=== PATIENT | male | born 1960 | race African-American/Black ===

== ENCOUNTER 2021-01-06 11:35 | Observation (INO) | payer OTHER ==
--- NOTE | 2021-01-06 12:44 | PCM.HP.2 ---
<Keyshawn Sen - Last Filed: 01/07/21 09:33> H&P History of Present Illness - General Date of Service: 01/06/21 Source of Information: Patient History Limitations: Reports: No Limitations - History of Present Illness Initial Comments - Free Text/Narative: Patient is a morbidly obese 60-year-old -[place] male with a significant past medical history of atrial fibrillation, CHF, possible asthma; presenting today as direct admission from [facility] for worsening shortness of breath and an episode of syncope 24 hours prior. Patient states increasing dyspnea with exertion and having to use 2 pillows at night as shortness of breath would worsen while in complete supine position. States that symptoms began towards the middle of October and had steadily worsened up until last week symptoms progressively worsened. Denies any fevers, chills, body aches. Endorses dyspnea with exertion and shortness of breath at rest especially in the supine position. [facility]: EKG: Atrial fibrillation with a ventricular rate of 99 Diltiazem 10 mg IV push once at 5 AM on 12/29/2020. Started on diltiazem oral 100 mg given at 8 AM this morning. Patient was also given 40 mg of furosemide IV push. Labs from outside facility: Sodium 140 Potassium 3.9. Glucose 106 creatinine 0.6 AST 60, ALT 86 alk phos 132 BNP 780 WBC: 12 Hemoglobin 14 Hematocrit 41 platelets 221 COVID negative Bedside: Patient endorses symptoms have improved since admission. Endorsed yesterday some significant symptoms but admitted he is feeling much better now. Denies any acute distress at this time including fever, chills, bodies, chest pain, shortness of breath. - Related Data Allergies/Adverse Reactions: Allergies Allergy/AdvReac Type Severity Reaction Status Date / Time No Known Allergies Allergy Verified 01/06/21 12:20 Home Medications: Home Meds Albuterol Sulfate [Proair Hfa] 1 puff INH Q4HR PRN 01/06/21 [History] Apixaban [Eliquis] 5 mg PO BID #60 tablet 01/10/21 [Rx] Diltiazem HCl [Diltiazem 24Hr Cd] 240 mg PO DAILY #30 cap.er.24h 01/10/21 [Rx] Furosemide [Lasix] 40 mg PO BID #60 tab 01/10/21 [Rx] Metoprolol Tartrate [Lopressor] 50 mg PO Q12H #60 tablet 01/10/21 [Rx] levoFLOXacin [Levaquin] 250 mg PO DAILY #9 tab 01/10/21 [Rx] H&P Review of Systems - Review of Systems: Review Of Systems: See Below General: Denies: Fever, Chills, Malaise, Weakness, Fatigue HEENT: Reports: No Symptoms Pulmonary: Reports: Cough. Denies: Shortness of Breath Cardiovascular: Reports: Dyspnea on Exertion, Edema. Denies: Chest Pain, Palpitations Gastrointestinal: Reports: No Symptoms Genitourinary: Reports: No Symptoms Musculoskeletal: Reports: No Symptoms Skin: Reports: No Symptoms Psychiatric: Reports: No Symptoms Neurological: Reports: No Symptoms Exam - Exam Exam: See Below - Exam Quality Assessment: No: Supplemental Oxygen General: Alert, Oriented, Cooperative HEENT: EOMI, Mucosa Moist & [place] Neck: Supple, Trachea Midline Lungs: Other (Moving air well faint crackles in bases ; coarse BS w. cough ) Cardiovascular: Regular Rate, Irregular Rhythm GI/Abdominal Exam: Soft, Non-Tender Back Exam: Normal Inspection Extremities: Other (+2/3 pitting edema noted to lower thigh bilaterally ) Neuro Extensive - Mental Status: Alert, Oriented x3 Psychiatric: Alert, Normal Mood - Patient Data Result Diagrams: 01/06/21 12:50 01/06/21 12:55 - Problem List (1) Afib SNOMED Code(s): 52771620 ICD Code: I48.91 - UNSPECIFIED ATRIAL FIBRILLATION Status: Acute (2) CHF (congestive heart failure) SNOMED Code(s): 23019955 ICD Code: I50.9 - HEART FAILURE, UNSPECIFIED Status: Acute (3) Obesity SNOMED Code(s): 393504710, 582114292 ICD Code: E66.9 - OBESITY, UNSPECIFIED Status: Acute Problem List Initiated/Reviewed/Updated: Yes Orders Last 24hrs: Active Orders 24 hr Category Date Time Status Antiembolic Devices [RC] PER UNIT ROUTINE Care 01/06/21 12:36 Active Daily Weight [Height and Weight] [RC] DAILY Care 01/06/21 12:38 Active Intake and Output Strict [RC] ASDIRECTED Care 01/06/21 12:38 Active Oxygen Therapy [RC] PRN Care 01/06/21 12:35 Active Pulse Oximetry [RC] PRN Care 01/06/21 12:35 Active RT BiPAP/CPAP [RC] ASDIRECTED Care 01/06/21 12:40 Ordered Telemetry Monitoring [Cardiac Monitoring] [RC] . Care 01/06/21 12:37 Active DIRECTED Up With Assistance [RC] ASDIRECTED Care 01/06/21 12:35 Active VTE/DVT Education [RC] PER UNIT ROUTINE Care 01/06/21 12:35 Active Vital Signs [RC] Q4H Care 01/06/21 12:35 Active 2 Gram Sodium Diet [DIET] Diet 01/06/21 Dinner Active Chest 2V [CR] Stat Exams 01/06/21 12:42 Ordered Echo 2D wo Cont [US] Urgent Exams 01/06/21 12:36 Ordered B-TYPE NATRIURETIC PEPTIDE,BNP [CHEM] Stat Lab 01/06/21 12:37 Ordered CBC WITH AUTO DIFF [HEME] AM Lab 01/07/21 05:11 Ordered CBC WITH AUTO DIFF [HEME] AM Lab 01/08/21 05:11 Ordered CBC WITH AUTO DIFF [HEME] AM Lab 01/09/21 05:11 Ordered CBC WITH AUTO DIFF [HEME] Stat Lab 01/06/21 12:36 Ordered COMPREHENSIVE METABOLIC PN,CMP [CHEM] AM Lab 01/07/21 05:11 Ordered COMPREHENSIVE METABOLIC PN,CMP [CHEM] AM Lab 01/08/21 05:11 Ordered COMPREHENSIVE METABOLIC PN,CMP [CHEM] AM Lab 01/09/21 05:11 Ordered COMPREHENSIVE METABOLIC PN,CMP [CHEM] Stat Lab 01/06/21 12:36 Ordered GLYCOSYLATED HEMOGLOBIN,HGBA1C [CHEM] Urgent Lab 01/06/21 12:42 Ordered UA RFX ED AND CULT IF INDIC [URIN] Stat Lab 01/06/21 12:39 Ordered Diltiazem [Cardizem CD] Med 01/07/21 09:00 Ordered 180 mg PO DAILY Sequential Compression Device [OM.PC] Per Unit Routine Oth 01/06/21 12:35 Ordered Medication Orders Diltiazem HCl (Diltiazem 180 Mg Cap.Cd) 180 mg PO DAILY ROC Assessment/Plan Comment:: Assessment: 1. CHF exacerbation with elevated BNP 2. A. fib with rate control 3. Leukocytosis 4. Transaminitis. 5. Past medical history: CRICKET on CPAP 6. COVID negative Plan Admit to observation. Full code. Strict I's and O's. Daily weights. DVT prophylaxis: History of A. fib: Start Eliquis GI prophylaxis pantoprazole 40 daily 1. CHF exacerbation with elevated BNP: Faint crackles on examination. Continue telemetry. Vital signs otherwise stable not requiring oxygen. Start Lasix 40 mg 3 times daily and dose adjust accordingly. Daily weights/strict I's and O's. Fluid and sodium restriction. Recheck CBC/CMP and urine electrolytes accordingly. Stat chest x-ray ordered. Urgent echocardiogram ordered to establish ejection fraction. 2. Atrial fibrillation rate controlled on current regimen: Started on 180 mg diltiazem CD at outside facility; we will continue this regimen daily and titrate accordingly. 20 mg IVPevery 3 hours as needed for heart rate 3-1 20 Systane ordered. Eliquis from my milligrams p.o. twice daily started as patient did not tolerate Coumadin in past per patient. Continue telemetry 3. Leukocytosis: Currently afebrile and no significant signs of overt bacteremia. We will order stat chest x-ray and treat accordingly. UA negative. 4. Transaminitis: Most likely secondary to hepatic steatosis in a morbidly obese man. Recheck in a.m. No abdominal tenderness noted. 5. Past medical history: Obstructive sleep apnea; continue CPAP at night. 6. COVID negative: reviewed report from [facility] facility; COVID negative <Shantell Castellanos - Last Filed: 01/10/21 17:15> H&P History of Present Illness - General Admit Problem/Dx: Admission Diagnosis/Problem Admission Diagnosis/Problem CHF, Congestive heart failure Exam - Vital Signs Vital Signs: Last Vital Signs Temp 35.6 C L 01/10/21 08:24 Pulse 106 H 01/10/21 09:15 Resp 20 01/10/21 08:24 BP 123/84 01/10/21 09:15 Pulse Ox 95 01/10/21 08:24 - Patient Data Lab Results Last 24 hrs: Laboratory Results - last 24 hr 01/10/21 01/10/21 Range/Units 05:05 05:05 WBC 12.88 H (4.0-11.0) K/uL RBC 4.87 (4.50-5.90) M/uL Hgb 15.0 (13.0-17.0) g/dL Hct 46.6 (38.0-50.0) % MCV 95.7 (80.0-98.0) fL MCH 30.8 (27.0-32.0) pg MCHC 32.2 (31.0-37.0) g/dL RDW Std Deviation 49.0 (28.0-62.0) fl RDW Coeff of Andrew 14 (11.0-15.0) % Plt Count 275 (150-400) K/uL MPV 11.30 (7.40-12.00) fL Neut % (Auto) 64.4 (48.0-80.0) % Lymph % (Auto) 24.0 (16.0-40.0) % [place] % (Auto) 9.8 (0.0-15.0) % Eos % (Auto) 1.5 (0.0-7.0) % Baso % (Auto) 0.3 (0.0-1.5) % Neut # (Auto) 8.3 H (1.4-5.7) K/uL Lymph # (Auto) 3.1 H (0.6-2.4) K/uL [place] # (Auto) 1.3 H (0.0-0.8) K/uL Eos # (Auto) 0.2 (0.0-0.7) K/uL Baso # (Auto) 0.0 (0.0-0.1) K/uL Nucleated RBC % 0.0 /100WBC Nucleated RBCs # 0 K/uL Sodium 141 (136-148) mmol/L Potassium 3.9 (3.5-5.1) mmol/L Chloride 103 (98-107) mmol/L Carbon Dioxide 30.8 (21.0-32.0) mmol/L BUN 19 H (7.0-18.0) mg/dL Creatinine 1.0 (0.8-1.3) mg/dL Est Cr Clr Drug Dosing 100.24 mL/min Estimated GFR (MDRD) > 60.0 ml/min Glucose 100 (74-106) mg/dL Calcium 9.0 (8.5-10.1) mg/dL Magnesium 2.2 (1.8-2.4) mg/dL Total Bilirubin 0.6 (0.2-1.0) mg/dL AST 23 (15-37) IU/L ALT 52 (14-63) IU/L Alkaline Phosphatase 132 H (46-116) U/L Total Protein 6.9 (6.4-8.2) g/dL Albumin 2.8 L (3.4-5.0) g/dL Globulin 4.1 H (2.6-4.0) g/dL Albumin/Globulin Ratio 0.7 L (0.9-1.6) Result Diagrams: 01/10/21 05:05 01/10/21 05:05 Sepsis Event Note - Focused Exam Vital Signs: Vital Signs Temp Pulse Pulse Resp BP BP Pulse Ox 01/10/21 09:15 106 H 123/84 01/10/21 09:14 106 H 123/84 01/10/21 08:24 35.6 C L 111 H 20 136/84 95 01/10/21 05:31 36.5 C 88 19 124/94 H 94 L Assessment/Plan Comment:: I performed a history and physical exam of the patient and discussed management with resident. I have reviewed the residents note and agree with documented findings and plan unless otherwise specified in my note.' .
[2021-01-06 13:14] LABS: HEMOGLOBIN A1C 5.8 %
[2021-01-06 13:26] LABS: BLOOD UREA NITROGEN,BUN 13 mg/dL (7.0-18.0); CARBON DIOXIDE,CO2 29.2 mmol/L (21.0-32.0); CHLORIDE,CL 104 mmol/L (98-107); GLUCOSE RANDOM 98 mg/dL (74-106); POTASSIUM,K 4.1 mmol/L (3.5-5.1); SODIUM,NA 140 mmol/L (136-148)
--- NOTE | 2021-01-06 15:19 | CR ---
INDICATION: Pain, shortness of breath. TECHNIQUE: Chest 2 views. COMPARISON: None. FINDINGS: There is a rounded consolidation in the left lung base which could represent an infiltrate or mass. No pleural effusion or pneumothorax. Normal heart size and pulmonary vascularity. Tortuous aorta. The bones are unremarkable. IMPRESSION: Rounded consolidation in the left lung base could represent infiltrate or mass. This could be further evaluated with CT of the chest. Dictated by Jennifer Barber MD @ 01/06/2021 3:17:[address] Jennifer Barber @ Jan 06 2021 3:17PM
[2021-01-06] MEDS: Furosemide 40 MG/4 ML VIAL IVPUSH SCH ×2 (16:00→21:34)
--- NOTE | 2021-01-06 18:20 | CT ---
INDICATION: Opacity on chest x-ray, assess for infiltrate versus mass. TECHNIQUE: Axial images were obtained from the thoracic inlet to the diaphragm. Reformats: Coronal and sagittal IV Contrast: None COMPARISON: Chest x-ray 01/06/2021 FINDINGS: Mediastinum: The thyroid gland is unremarkable. High right paratracheal lymph node measures up to 10 millimeters. Mild fusiform enlargement of the ascending thoracic aorta measuring up to 4.6 centimeters. Mild coronary atherosclerosis. No pericardial effusion. Lungs and Pleural Space: No pleural effusion or pneumothorax. Paraseptal bulla lung apices. Left lower lobe nodular opacities which appear more central to central lobular. Trace atelectasis adjacent to the spine in the right lower lobe. Chest wall: No masses. Upper abdomen: Minimal colonic diverticulosis. Bones: Degenerative disc disease thoracic spine. IMPRESSION: 1. Chest x-ray abnormality corresponds to multiple nodules within the left lower lobe. This is a bit nonspecific although the distribution is more centrilobular to peribronchovascular. Inflammatory or neoplastic etiologies not entirely excluded, however this appearance would favor infectious nodularity. As this is visible radiographically, follow-up x-ray recommended in 6-8 weeks to document resolution. If there is failure of this process to resolve that time, repeat CT chest and possible biopsy would be indicated. 2. Mild fusiform enlargement of the ascending thoracic aorta at 4.6 centimeters. Please note that all CT scans at this facility use dose modulation, iterative reconstruction, and/or weight-based dosing when appropriate to reduce radiation dose to as low as reasonably achievable. Dictated by Frankie Elder MD @ 01/06/2021 6:19:[address] Frankie Elder @ Jan 06 2021 6:19PM
[2021-01-06] MEDS: Apixaban 5 MG Tab PO SCH (21:33)
[2021-01-06] MEDS: Levofloxacin/Dextrose 5%-Water 750 MG in Premix Bag 1 BAG IV SCH (21:33)
[2021-01-06] MEDS ORDERED: Diltiazem IR 60 MG Tab PO ONE (22:44)
[2021-01-06] MEDS: Albuterol/Ipratropium 3.0-0.5 MG/3 ML Neb Soln NEB PRN (23:42)
[2021-01-07] MEDS: Furosemide 40 MG/4 ML VIAL IVPUSH SCH ×3 (06:52→21:23)
[2021-01-07] MEDS: Pantoprazole 40 MG Tab.CR PO SCH (06:52)
[2021-01-07 07:46] LABS: BLOOD UREA NITROGEN,BUN 13 mg/dL (7.0-18.0); CARBON DIOXIDE,CO2 31.5 mmol/L (21.0-32.0); CHLORIDE,CL 103 mmol/L (98-107); GLUCOSE RANDOM 108 mg/dL (74-106); POTASSIUM,K 3.6 mmol/L (3.5-5.1); SODIUM,NA 140 mmol/L (136-148)
[2021-01-07] MEDS: Aspirin 81 MG Tab.Chew PO SCH (08:24)
[2021-01-07] MEDS: Apixaban 5 MG Tab PO SCH ×2 (08:24→21:23)
[2021-01-07] MEDS: Albuterol/Ipratropium 3.0-0.5 MG/3 ML Neb Soln NEB PRN (08:39)
[2021-01-07] MEDS ORDERED: Diltiazem 180 MG Cap.CD PO SCH (09:00)
--- NOTE | 2021-01-07 09:38 | PCM.PN ---
<Keyshawn Sen - Last Filed: 01/07/21 13:21> - General Info Date of Service: 01/07/21 Subjective Update: Bedside: endorses feeling better. Mentiosn some coughing fits but otherwise denies any new alarming symptoms - Review of Systems General: Reports: No Symptoms HEENT: Reports: No Symptoms Pulmonary: Reports: Cough Cardiovascular: Reports: Dyspnea on Exertion, Edema Gastrointestinal: Reports: No Symptoms Genitourinary: Reports: No Symptoms Musculoskeletal: Reports: Foot Pain Neurological: Reports: No Symptoms - Patient Data Vitals - Most Recent: Last Vital Signs Temp 97.5 F 01/07/21 08:16 Pulse 90 01/07/21 08:16 Resp 20 01/07/21 08:16 BP 152/117 H 01/07/21 08:16 Pulse Ox 95 01/07/21 08:16 Weight - Most Recent: 175.631 kg I&O - Last 24 Hours: Intake & Output 01/06/21 01/07/21 01/07/21 22:59 06:59 14:59 Intake Total 1050 800 Output Total 1375 4345 Balance -325 -3545 Lab Results Last 24 Hours: Laboratory Results - last 24 hr 01/06/21 01/06/21 01/06/21 Range/Units 12:50 12:55 12:55 WBC 13.96 H (4.0-11.0) K/uL RBC 4.56 (4.50-5.90) M/uL Hgb 14.3 (13.0-17.0) g/dL Hct 43.8 (38.0-50.0) % MCV 96.1 (80.0-98.0) fL MCH 31.4 (27.0-32.0) pg MCHC 32.6 (31.0-37.0) g/dL RDW Std Deviation 51.0 (28.0-62.0) fl RDW Coeff of Andrew 15 (11.0-15.0) % Plt Count 274 (150-400) K/uL MPV 10.70 (7.40-12.00) fL Neut % (Auto) 62.4 (48.0-80.0) % Lymph % (Auto) 26.2 (16.0-40.0) % [place] % (Auto) 9.7 (0.0-15.0) % Eos % (Auto) 1.4 (0.0-7.0) % Baso % (Auto) 0.3 (0.0-1.5) % Neut # (Auto) 8.7 H (1.4-5.7) K/uL Lymph # (Auto) 3.7 H (0.6-2.4) K/uL [place] # (Auto) 1.4 H (0.0-0.8) K/uL Eos # (Auto) 0.2 (0.0-0.7) K/uL Baso # (Auto) 0.0 (0.0-0.1) K/uL Nucleated RBC % 0.0 /100WBC Nucleated RBCs # 0 K/uL Sodium 140 (136-148) mmol/L Potassium 4.1 (3.5-5.1) mmol/L Chloride 104 (98-107) mmol/L Carbon Dioxide 29.2 (21.0-32.0) mmol/L BUN 13 (7.0-18.0) mg/dL Creatinine 0.9 (0.8-1.3) mg/dL Est Cr Clr Drug Dosing TNP Estimated GFR (MDRD) > 60.0 ml/min Glucose 98 (74-106) mg/dL Hemoglobin A1c (4.5 - 6.2) % Calcium 8.8 (8.5-10.1) mg/dL Total Bilirubin 0.6 (0.2-1.0) mg/dL AST 60 H (15-37) IU/L ALT 100 H (14-63) IU/L Alkaline Phosphatase 147 H (46-116) U/L B-Natriuretic Peptide 652 H (<100) PG/ML Total Protein 7.0 (6.4-8.2) g/dL Albumin 3.0 L (3.4-5.0) g/dL Globulin 4.0 (2.6-4.0) g/dL Albumin/Globulin Ratio 0.8 L (0.9-1.6) Triglycerides (0-200) mg/dL Cholesterol (50-200) mg/dL LDL Cholesterol, Calc (60-180) mg/dL VLDL Cholesterol (5-55) mg/dL HDL Cholesterol (40-60) mg/dL Cholesterol/HDL Ratio (3.3-6.0) Free T4 (0.76-1.46) ng/dL Free T3 (2.18-3.98) pg/mL TSH 3rd Generation (0.36-3.74) uIU/mL Urine Color Urine Appearance Urine pH (5.0-8.0) Ur Specific [place] (1.001-1.035) Urine Protein (NEGATIVE) mg/dL Urine Glucose (UA) (NEGATIVE) mg/dL Urine Ketones (NEGATIVE) mg/dL Urine Occult Blood (NEGATIVE) Urine Nitrite (NEGATIVE) Urine Bilirubin (NEGATIVE) Urine Urobilinogen (<2.0) EU/dL Ur Leukocyte Esterase (NEGATIVE) 01/06/21 01/06/21 01/07/21 Range/Units 12:55 13:47 06:23 WBC 13.03 H (4.0-11.0) K/uL RBC 4.43 L (4.50-5.90) M/uL Hgb 14.1 (13.0-17.0) g/dL Hct 42.5 (38.0-50.0) % MCV 95.9 (80.0-98.0) fL MCH 31.8 (27.0-32.0) pg MCHC 33.2 (31.0-37.0) g/dL RDW Std Deviation 49.7 (28.0-62.0) fl RDW Coeff of Andrew 14 (11.0-15.0) % Plt Count 246 (150-400) K/uL MPV 11.00 (7.40-12.00) fL Neut % (Auto) 65.3 (48.0-80.0) % Lymph % (Auto) 23.7 (16.0-40.0) % [place] % (Auto) 9.6 (0.0-15.0) % Eos % (Auto) 1.1 (0.0-7.0) % Baso % (Auto) 0.3 (0.0-1.5) % Neut # (Auto) 8.5 H (1.4-5.7) K/uL Lymph # (Auto) 3.1 H (0.6-2.4) K/uL [place] # (Auto) 1.3 H (0.0-0.8) K/uL Eos # (Auto) 0.1 (0.0-0.7) K/uL Baso # (Auto) 0.0 (0.0-0.1) K/uL Nucleated RBC % 0.0 /100WBC Nucleated RBCs # 0 K/uL Sodium (136-148) mmol/L Potassium (3.5-5.1) mmol/L Chloride (98-107) mmol/L Carbon Dioxide (21.0-32.0) mmol/L BUN (7.0-18.0) mg/dL Creatinine (0.8-1.3) mg/dL Est Cr Clr Drug Dosing Estimated GFR (MDRD) ml/min Glucose (74-106) mg/dL Hemoglobin A1c 5.8 (4.5 - 6.2) % Calcium (8.5-10.1) mg/dL Total Bilirubin (0.2-1.0) mg/dL AST (15-37) IU/L ALT (14-63) IU/L Alkaline Phosphatase (46-116) U/L B-Natriuretic Peptide (<100) PG/ML Total Protein (6.4-8.2) g/dL Albumin (3.4-5.0) g/dL Globulin (2.6-4.0) g/dL Albumin/Globulin Ratio (0.9-1.6) Triglycerides (0-200) mg/dL Cholesterol (50-200) mg/dL LDL Cholesterol, Calc (60-180) mg/dL VLDL Cholesterol (5-55) mg/dL HDL Cholesterol (40-60) mg/dL Cholesterol/HDL Ratio (3.3-6.0) Free T4 (0.76-1.46) ng/dL Free T3 (2.18-3.98) pg/mL TSH 3rd Generation (0.36-3.74) uIU/mL Urine Color YELLOW Urine Appearance CLEAR Urine pH 6.5 (5.0-8.0) Ur Specific [place] 1.015 (1.001-1.035) Urine Protein NEGATIVE (NEGATIVE) mg/dL Urine Glucose (UA) NEGATIVE (NEGATIVE) mg/dL Urine Ketones NEGATIVE (NEGATIVE) mg/dL Urine Occult Blood NEGATIVE (NEGATIVE) Urine Nitrite NEGATIVE (NEGATIVE) Urine Bilirubin NEGATIVE (NEGATIVE) Urine Urobilinogen 0.2 (<2.0) EU/dL Ur Leukocyte Esterase NEGATIVE (NEGATIVE) 01/07/21 Range/Units 06:23 WBC (4.0-11.0) K/uL RBC (4.50-5.90) M/uL Hgb (13.0-17.0) g/dL Hct (38.0-50.0) % MCV (80.0-98.0) fL MCH (27.0-32.0) pg MCHC (31.0-37.0) g/dL RDW Std Deviation (28.0-62.0) fl RDW Coeff of Andrew (11.0-15.0) % Plt Count (150-400) K/uL MPV (7.40-12.00) fL Neut % (Auto) (48.0-80.0) % Lymph % (Auto) (16.0-40.0) % [place] % (Auto) (0.0-15.0) % Eos % (Auto) (0.0-7.0) % Baso % (Auto) (0.0-1.5) % Neut # (Auto) (1.4-5.7) K/uL Lymph # (Auto) (0.6-2.4) K/uL [place] # (Auto) (0.0-0.8) K/uL Eos # (Auto) (0.0-0.7) K/uL Baso # (Auto) (0.0-0.1) K/uL Nucleated RBC % /100WBC Nucleated RBCs # K/uL Sodium 140 (136-148) mmol/L Potassium 3.6 (3.5-5.1) mmol/L Chloride 103 (98-107) mmol/L Carbon Dioxide 31.5 (21.0-32.0) mmol/L BUN 13 (7.0-18.0) mg/dL Creatinine 0.9 (0.8-1.3) mg/dL Est Cr Clr Drug Dosing 111.38 Estimated GFR (MDRD) > 60.0 ml/min Glucose 108 H (74-106) mg/dL Hemoglobin A1c (4.5 - 6.2) % Calcium 8.7 (8.5-10.1) mg/dL Total Bilirubin 0.8 (0.2-1.0) mg/dL AST 39 H (15-37) IU/L ALT 87 H (14-63) IU/L Alkaline Phosphatase 137 H (46-116) U/L B-Natriuretic Peptide (<100) PG/ML Total Protein 6.3 L (6.4-8.2) g/dL Albumin 2.9 L (3.4-5.0) g/dL Globulin 3.4 (2.6-4.0) g/dL Albumin/Globulin Ratio 0.9 (0.9-1.6) Triglycerides 69 (0-200) mg/dL Cholesterol 118 (50-200) mg/dL LDL Cholesterol, Calc 65 (60-180) mg/dL VLDL Cholesterol 13 (5-55) mg/dL HDL Cholesterol 39 L (40-60) mg/dL Cholesterol/HDL Ratio 3.0 L (3.3-6.0) Free T4 1.28 (0.76-1.46) ng/dL Free T3 3.04 (2.18-3.98) pg/mL TSH 3rd Generation 0.47 (0.36-3.74) uIU/mL Urine Color Urine Appearance Urine pH (5.0-8.0) Ur Specific [place] (1.001-1.035) Urine Protein (NEGATIVE) mg/dL Urine Glucose (UA) (NEGATIVE) mg/dL Urine Ketones (NEGATIVE) mg/dL Urine Occult Blood (NEGATIVE) Urine Nitrite (NEGATIVE) Urine Bilirubin (NEGATIVE) Urine Urobilinogen (<2.0) EU/dL Ur Leukocyte Esterase (NEGATIVE) Med Orders - Current: Current Medications Albuterol/Ipratropium (Albuterol/Ipratropium 3.0-0.5 Mg/3 Ml Neb Soln) 3 ml NEB Q4HRRT PRN PRN Reason: Dyspnea Last Admin: 01/07/21 08:39 Dose: 3 ml Documented by: Apixaban (Apixaban 5 Mg Tab) 5 mg PO BID [facility] Last Admin: 01/07/21 08:24 Dose: 5 mg Documented by: Aspirin (Aspirin 81 Mg Tab.Chew) 81 mg PO DAILY [facility] Last Admin: 01/07/21 08:24 Dose: 81 mg Documented by: Atorvastatin Calcium (Atorvastatin 20 Mg Tab) 20 mg PO BEDTIME [facility] Diltiazem HCl (Diltiazem 180 Mg Cap.Cd) 180 mg PO DAILY [facility] Last Admin: 01/07/21 08:24 Dose: 180 mg Documented by: Diltiazem HCl (Diltiazem 25 Mg/5 Ml Sdv) 20 mg IVPUSH Q3H PRN PRN Reason: heart rate > 120 sustained Furosemide (Furosemide 40 Mg/4 Ml Vial) 40 mg IVPUSH TID [facility] Last Admin: 01/07/21 06:52 Dose: 40 mg Documented by: Levofloxacin/Dextrose 750 mg/ (Premix) 150 mls @ 100 mls/hr IV Q24H [facility] Last Admin: 01/06/21 21:33 Dose: 100 mls/hr Documented by: Pantoprazole Sodium (Pantoprazole 40 Mg Tab.Cr) 40 mg PO ACBREAKFAST [facility] Last Admin: 01/07/21 06:52 Dose: 40 mg Documented by: Discontinued Medications Diltiazem HCl (Diltiazem Ir 60 Mg Tab) 60 mg PO ONETIME ONE Stop: 01/06/21 22:45 Last Admin: 01/06/21 23:18 Dose: 60 mg Documented by: - Exam General: Alert, Oriented HEENT: EOMI, Mucous Membr. Moist/[place] Neck: Supple Lungs: Normal Respiratory Effort Cardiovascular: Regular Rate, Irregular Rhythm GI/Abdominal Exam: Soft, Non-Tender Extremities: Other (Pedal edema: improved from yesterday ) Skin: Warm, Intact - Patient Data Lab Results Last 24 hrs: Laboratory Results - last 24 hr 01/06/21 01/06/21 01/06/21 Range/Units 12:50 12:55 12:55 WBC 13.96 H (4.0-11.0) K/uL RBC 4.56 (4.50-5.90) M/uL Hgb 14.3 (13.0-17.0) g/dL Hct 43.8 (38.0-50.0) % MCV 96.1 (80.0-98.0) fL MCH 31.4 (27.0-32.0) pg MCHC 32.6 (31.0-37.0) g/dL RDW Std Deviation 51.0 (28.0-62.0) fl RDW Coeff of [place] 15 (11.0-15.0) % Plt Count 274 (150-400) K/uL MPV 10.70 (7.40-12.00) fL Neut % (Auto) 62.4 (48.0-80.0) % Lymph % (Auto) 26.2 (16.0-40.0) % [place] % (Auto) 9.7 (0.0-15.0) % Eos % (Auto) 1.4 (0.0-7.0) % Baso % (Auto) 0.3 (0.0-1.5) % Neut # (Auto) 8.7 H (1.4-5.7) K/uL Lymph # (Auto) 3.7 H (0.6-2.4) K/uL [place] # (Auto) 1.4 H (0.0-0.8) K/uL Eos # (Auto) 0.2 (0.0-0.7) K/uL Baso # (Auto) 0.0 (0.0-0.1) K/uL Nucleated RBC % 0.0 /100WBC Nucleated RBCs # 0 K/uL Sodium 140 (136-148) mmol/L Potassium 4.1 (3.5-5.1) mmol/L Chloride 104 (98-107) mmol/L Carbon Dioxide 29.2 (21.0-32.0) mmol/L BUN 13 (7.0-18.0) mg/dL Creatinine 0.9 (0.8-1.3) mg/dL Est Cr Clr Drug Dosing TNP Estimated GFR (MDRD) > 60.0 ml/min Glucose 98 (74-106) mg/dL Hemoglobin A1c (4.5 - 6.2) % Calcium 8.8 (8.5-10.1) mg/dL Total Bilirubin 0.6 (0.2-1.0) mg/dL AST 60 H (15-37) IU/L ALT 100 H (14-63) IU/L Alkaline Phosphatase 147 H (46-116) U/L B-Natriuretic Peptide 652 H (<100) PG/ML Total Protein 7.0 (6.4-8.2) g/dL Albumin 3.0 L (3.4-5.0) g/dL Globulin 4.0 (2.6-4.0) g/dL Albumin/Globulin Ratio 0.8 L (0.9-1.6) Triglycerides (0-200) mg/dL Cholesterol (50-200) mg/dL LDL Cholesterol, Calc (60-180) mg/dL VLDL Cholesterol (5-55) mg/dL HDL Cholesterol (40-60) mg/dL Cholesterol/HDL Ratio (3.3-6.0) Free T4 (0.76-1.46) ng/dL Free T3 (2.18-3.98) pg/mL TSH 3rd Generation (0.36-3.74) uIU/mL Urine Color Urine Appearance Urine pH (5.0-8.0) Ur Specific [place] (1.001-1.035) Urine Protein (NEGATIVE) mg/dL Urine Glucose (UA) (NEGATIVE) mg/dL Urine Ketones (NEGATIVE) mg/dL Urine Occult Blood (NEGATIVE) Urine Nitrite (NEGATIVE) Urine Bilirubin (NEGATIVE) Urine Urobilinogen (<2.0) EU/dL Ur Leukocyte Esterase (NEGATIVE) 01/06/21 01/06/21 01/07/21 Range/Units 12:55 13:47 06:23 WBC 13.03 H (4.0-11.0) K/uL RBC 4.43 L (4.50-5.90) M/uL Hgb 14.1 (13.0-17.0) g/dL Hct 42.5 (38.0-50.0) % MCV 95.9 (80.0-98.0) fL MCH 31.8 (27.0-32.0) pg MCHC 33.2 (31.0-37.0) g/dL RDW Std Deviation 49.7 (28.0-62.0) fl RDW Coeff of [place] 14 (11.0-15.0) % Plt Count 246 (150-400) K/uL MPV 11.00 (7.40-12.00) fL Neut % (Auto) 65.3 (48.0-80.0) % Lymph % (Auto) 23.7 (16.0-40.0) % [place] % (Auto) 9.6 (0.0-15.0) % Eos % (Auto) 1.1 (0.0-7.0) % Baso % (Auto) 0.3 (0.0-1.5) % Neut # (Auto) 8.5 H (1.4-5.7) K/uL Lymph # (Auto) 3.1 H (0.6-2.4) K/uL [place] # (Auto) 1.3 H (0.0-0.8) K/uL Eos # (Auto) 0.1 (0.0-0.7) K/uL Baso # (Auto) 0.0 (0.0-0.1) K/uL Nucleated RBC % 0.0 /100WBC Nucleated RBCs # 0 K/uL Sodium (136-148) mmol/L Potassium (3.5-5.1) mmol/L Chloride (98-107) mmol/L Carbon Dioxide (21.0-32.0) mmol/L BUN (7.0-18.0) mg/dL Creatinine (0.8-1.3) mg/dL Est Cr Clr Drug Dosing Estimated GFR (MDRD) ml/min Glucose (74-106) mg/dL Hemoglobin A1c 5.8 (4.5 - 6.2) % Calcium (8.5-10.1) mg/dL Total Bilirubin (0.2-1.0) mg/dL AST (15-37) IU/L ALT (14-63) IU/L Alkaline Phosphatase (46-116) U/L B-Natriuretic Peptide (<100) PG/ML Total Protein (6.4-8.2) g/dL Albumin (3.4-5.0) g/dL Globulin (2.6-4.0) g/dL Albumin/Globulin Ratio (0.9-1.6) Triglycerides (0-200) mg/dL Cholesterol (50-200) mg/dL LDL Cholesterol, Calc (60-180) mg/dL VLDL Cholesterol (5-55) mg/dL HDL Cholesterol (40-60) mg/dL Cholesterol/HDL Ratio (3.3-6.0) Free T4 (0.76-1.46) ng/dL Free T3 (2.18-3.98) pg/mL TSH 3rd Generation (0.36-3.74) uIU/mL Urine Color YELLOW Urine Appearance CLEAR Urine pH 6.5 (5.0-8.0) Ur Specific [place] 1.015 (1.001-1.035) Urine Protein NEGATIVE (NEGATIVE) mg/dL Urine Glucose (UA) NEGATIVE (NEGATIVE) mg/dL Urine Ketones NEGATIVE (NEGATIVE) mg/dL Urine Occult Blood NEGATIVE (NEGATIVE) Urine Nitrite NEGATIVE (NEGATIVE) Urine Bilirubin NEGATIVE (NEGATIVE) Urine Urobilinogen 0.2 (<2.0) EU/dL Ur Leukocyte Esterase NEGATIVE (NEGATIVE) 01/07/21 Range/Units 06:23 WBC (4.0-11.0) K/uL RBC (4.50-5.90) M/uL Hgb (13.0-17.0) g/dL Hct (38.0-50.0) % MCV (80.0-98.0) fL MCH (27.0-32.0) pg MCHC (31.0-37.0) g/dL RDW Std Deviation (28.0-62.0) fl RDW Coeff of [place] (11.0-15.0) % Plt Count (150-400) K/uL MPV (7.40-12.00) fL Neut % (Auto) (48.0-80.0) % Lymph % (Auto) (16.0-40.0) % [place] % (Auto) (0.0-15.0) % Eos % (Auto) (0.0-7.0) % Baso % (Auto) (0.0-1.5) % Neut # (Auto) (1.4-5.7) K/uL Lymph # (Auto) (0.6-2.4) K/uL [place] # (Auto) (0.0-0.8) K/uL Eos # (Auto) (0.0-0.7) K/uL Baso # (Auto) (0.0-0.1) K/uL Nucleated RBC % /100WBC Nucleated RBCs # K/uL Sodium 140 (136-148) mmol/L Potassium 3.6 (3.5-5.1) mmol/L Chloride 103 (98-107) mmol/L Carbon Dioxide 31.5 (21.0-32.0) mmol/L BUN 13 (7.0-18.0) mg/dL Creatinine 0.9 (0.8-1.3) mg/dL Est Cr Clr Drug Dosing 111.38 Estimated GFR (MDRD) > 60.0 ml/min Glucose 108 H (74-106) mg/dL Hemoglobin A1c (4.5 - 6.2) % Calcium 8.7 (8.5-10.1) mg/dL Total Bilirubin 0.8 (0.2-1.0) mg/dL AST 39 H (15-37) IU/L ALT 87 H (14-63) IU/L Alkaline Phosphatase 137 H (46-116) U/L B-Natriuretic Peptide (<100) PG/ML Total Protein 6.3 L (6.4-8.2) g/dL Albumin 2.9 L (3.4-5.0) g/dL Globulin 3.4 (2.6-4.0) g/dL Albumin/Globulin Ratio 0.9 (0.9-1.6) Triglycerides 69 (0-200) mg/dL Cholesterol 118 (50-200) mg/dL LDL Cholesterol, Calc 65 (60-180) mg/dL VLDL Cholesterol 13 (5-55) mg/dL HDL Cholesterol 39 L (40-60) mg/dL Cholesterol/HDL Ratio 3.0 L (3.3-6.0) Free T4 1.28 (0.76-1.46) ng/dL Free T3 3.04 (2.18-3.98) pg/mL TSH 3rd Generation 0.47 (0.36-3.74) uIU/mL Urine Color Urine Appearance Urine pH (5.0-8.0) Ur Specific [place] (1.001-1.035) Urine Protein (NEGATIVE) mg/dL Urine Glucose (UA) (NEGATIVE) mg/dL Urine Ketones (NEGATIVE) mg/dL Urine Occult Blood (NEGATIVE) Urine Nitrite (NEGATIVE) Urine Bilirubin (NEGATIVE) Urine Urobilinogen (<2.0) EU/dL Ur Leukocyte Esterase (NEGATIVE) Result Diagrams: 01/07/21 06:23 01/07/21 06:23 Sepsis Event Note - Evaluation Sepsis Screening Result: No Definite Risk - Focused Exam Vital Signs: Vital Signs Temp Pulse Resp BP BP Pulse Ox 01/07/21 08:16 97.5 F 90 20 147/117 H 152/117 H 95 01/07/21 05:23 97.8 F 20 137/101 H 96 01/07/21 00:02 95 01/07/21 00:00 93 L 01/06/21 23:11 97 F 99 20 143/94 H 97 - Problem List & Annotations (1) Afib SNOMED Code(s): 56117156 Code(s): I48.91 - UNSPECIFIED ATRIAL FIBRILLATION Status: Acute (2) CHF (congestive heart failure) SNOMED Code(s): 50404614 Code(s): I50.9 - HEART FAILURE, UNSPECIFIED Status: Acute (3) Obesity SNOMED Code(s): 735949414, 943893651 Code(s): E66.9 - OBESITY, UNSPECIFIED Status: Acute - Problem List Review Problem List Initiated/Reviewed/Updated: Yes - My Orders Last 24 Hours: My Active Orders 01/06/21 12:35 Oxygen Therapy [RC] PRN Pulse Oximetry [RC] PRN Up With Assistance [RC] ASDIRECTED VTE/DVT Education [RC] PER UNIT ROUTINE Vital Signs [RC] Q4H Sequential Compression Device [OM.PC] Per Unit Routine 01/06/21 12:36 Antiembolic Devices [RC] PER UNIT ROUTINE Echo Comp wo Cont [US] Urgent 01/06/21 12:37 Telemetry Monitoring [Cardiac Monitoring] [RC] Q8H 01/06/21 12:38 Daily Weight [Height and Weight] [RC] Q24H Intake and Output Strict [RC] Q4H 01/06/21 12:40 RT BiPAP/CPAP [RC] ASDIRECTED 01/06/21 13:49 Admission Status [Patient Status] [ADT] Routine 01/06/21 14:00 Furosemide [Lasix] 40 mg IVPUSH TID 01/06/21 14:10 Code Status [Resuscitation Status] Routine 01/06/21 14:14 Diltiazem 20 mg IVPUSH Q3H PRN 01/06/21 Dinner 2 Gram Sodium Diet [DIET] 01/06/21 19:03 Communication Order [RC] ROUTINE 01/06/21 20:00 Levofloxacin/Dextrose 5%-Water [Levaquin in D5W 750 MG/150 ML] 750 mg Premix Bag 1 bag IV Q24H 01/06/21 21:00 Apixaban [Eliquis] 5 mg PO BID 01/07/21 07:30 Pantoprazole [ProTONIX] 40 mg PO ACBREAKFAST 01/07/21 09:00 Diltiazem [Cardizem CD] 180 mg PO DAILY 01/08/21 05:11 CBC WITH AUTO DIFF [HEME] AM COMPREHENSIVE METABOLIC PN,CMP [CHEM] AM 01/09/21 05:11 CBC WITH AUTO DIFF [HEME] AM COMPREHENSIVE METABOLIC PN,CMP [CHEM] AM - Plan Plan:: Assessment: 1. CHF exacerbation with elevated BNP 2. A. fib 3. Leukocytosis 4. Transaminitis. 5. Past medical history: CRICKET on CPAP 6. COVID negative Plan 1. CHF exacerbation with elevated BNP: improving, weight down/ dyspnea improving Continue Lasix 40 mg 3 times daily and dose adjust accordingly. Daily weights/strict I's and O's. Fluid and sodium restriction. Recheck CBC/CMP and urine electrolytes accordingly. Lung nodule : neoplastic vs inflammatory noted on LLL; discussed results with patient; will continue Levofloxacin sine WBC still elvated (marginally); advised to follow up in 6-8 weeks for repeat CXR/CT-scan 2. Atrial fibrillation: 180 mg CD in AM ; 30 mg IR q 6hrs today till midnight; start 240 CD in AM and adjust accordingly 20 mg IV every 3 hours as needed for heart rate >120 sustained Eliquis :continue Continue telemetry 3. Leukocytosis: Currently afebrile. Cont Levofloxacin. Discussed CT findings w. patient; pt understood and agreed to follow up outpatie nt for repeat imaging 4. Transaminitis: improving 5. Past medical history: Obstructive sleep apnea; continue CPAP at night. 6. COVID negative: reviewed report from [facility]; COVID negative <Shantell Castellanos - Last Filed: 01/10/21 17:12> - Patient Data Vitals - Most Recent: Last Vital Signs Temp 35.6 C L 01/10/21 08:24 Pulse 106 H 01/10/21 09:15 Resp 20 01/10/21 08:24 BP 123/84 01/10/21 09:15 Pulse Ox 95 01/10/21 08:24 I&O - Last 24 Hours: Intake & Output 01/10/21 01/10/21 01/10/21 06:59 14:59 22:59 Intake Total 700 500 Output Total 2800 650 Balance -2100 -150 Lab Results Last 24 Hours: Laboratory Results - last 24 hr 01/10/21 01/10/21 Range/Units 05:05 05:05 WBC 12.88 H (4.0-11.0) K/uL RBC 4.87 (4.50-5.90) M/uL Hgb 15.0 (13.0-17.0) g/dL Hct 46.6 (38.0-50.0) % MCV 95.7 (80.0-98.0) fL MCH 30.8 (27.0-32.0) pg MCHC 32.2 (31.0-37.0) g/dL RDW Std Deviation 49.0 (28.0-62.0) fl RDW Coeff of Andrew 14 (11.0-15.0) % Plt Count 275 (150-400) K/uL MPV 11.30 (7.40-12.00) fL Neut % (Auto) 64.4 (48.0-80.0) % Lymph % (Auto) 24.0 (16.0-40.0) % [place] % (Auto) 9.8 (0.0-15.0) % Eos % (Auto) 1.5 (0.0-7.0) % Baso % (Auto) 0.3 (0.0-1.5) % Neut # (Auto) 8.3 H (1.4-5.7) K/uL Lymph # (Auto) 3.1 H (0.6-2.4) K/uL [place] # (Auto) 1.3 H (0.0-0.8) K/uL Eos # (Auto) 0.2 (0.0-0.7) K/uL Baso # (Auto) 0.0 (0.0-0.1) K/uL Nucleated RBC % 0.0 /100WBC Nucleated RBCs # 0 K/uL Sodium 141 (136-148) mmol/L Potassium 3.9 (3.5-5.1) mmol/L Chloride 103 (98-107) mmol/L Carbon Dioxide 30.8 (21.0-32.0) mmol/L BUN 19 H (7.0-18.0) mg/dL Creatinine 1.0 (0.8-1.3) mg/dL Est Cr Clr Drug Dosing 100.24 mL/min Estimated GFR (MDRD) > 60.0 ml/min Glucose 100 (74-106) mg/dL Calcium 9.0 (8.5-10.1) mg/dL Magnesium 2.2 (1.8-2.4) mg/dL Total Bilirubin 0.6 (0.2-1.0) mg/dL AST 23 (15-37) IU/L ALT 52 (14-63) IU/L Alkaline Phosphatase 132 H (46-116) U/L Total Protein 6.9 (6.4-8.2) g/dL Albumin 2.8 L (3.4-5.0) g/dL Globulin 4.1 H (2.6-4.0) g/dL Albumin/Globulin Ratio 0.7 L (0.9-1.6) Med Orders - Current: Current Medications Discontinued Medications Albuterol/Ipratropium (Albuterol/Ipratropium 3.0-0.5 Mg/3 Ml Neb Soln) 3 ml NEB Q4HRRT PRN PRN Reason: Dyspnea Last Admin: 01/07/21 08:39 Dose: 3 ml Documented by: Apixaban (Apixaban 5 Mg Tab) 5 mg PO BID [facility] Last Admin: 01/10/21 09:15 Dose: 5 mg Documented by: Aspirin (Aspirin 81 Mg Tab.Chew) 81 mg PO DAILY [facility] Last Admin: 01/10/21 09:15 Dose: 81 mg Documented by: Atorvastatin Calcium (Atorvastatin 20 Mg Tab) 20 mg PO BEDTIME [facility] Last Admin: 01/09/21 20:24 Dose: 20 mg Documented by: Diltiazem HCl (Diltiazem 180 Mg Cap.Cd) 180 mg PO DAILY [facility] Last Admin: 01/07/21 08:24 Dose: 180 mg Documented by: Diltiazem HCl (Diltiazem 25 Mg/5 Ml Sdv) 20 mg IVPUSH Q3H PRN PRN Reason: heart rate > 120 sustained Last Admin: 01/08/21 07:59 Dose: 20 mg Documented by: Diltiazem HCl (Diltiazem Ir 60 Mg Tab) 60 mg PO ONETIME ONE Stop: 01/06/21 22:45 Last Admin: 01/06/21 23:18 Dose: 60 mg Documented by: Diltiazem HCl (Diltiazem Ir 60 Mg Tab) 60 mg PO ONETIME ONE Stop: 01/07/21 20:01 Diltiazem HCl (Diltiazem 120 Mg Cap.Cd) 240 mg PO DAILY [facility] Last Admin: 01/10/21 09:14 Dose: 240 mg Documented by: Diltiazem HCl (Diltiazem Ir 30 Mg Tab) 30 mg PO Q6HR [facility] Stop: 01/08/21 00:00 Last Admin: 01/07/21 23:30 Dose: 30 mg Documented by: Furosemide (Furosemide 40 Mg/4 Ml Vial) 40 mg IVPUSH TID [facility] Last Admin: 01/10/21 05:45 Dose: 40 mg Documented by: Levofloxacin/Dextrose 750 mg/ (Premix) 150 mls @ 100 mls/hr IV Q24H [facility] Last Admin: 01/09/21 20:25 Dose: 100 mls/hr Documented by: Metoprolol Tartrate (Metoprolol Tartrate 50 Mg Tab) 50 mg PO Q12H [facility] Last Admin: 01/10/21 09:15 Dose: 50 mg Documented by: Pantoprazole Sodium (Pantoprazole 40 Mg Tab.Cr) 40 mg PO ACBREAKFAST [facility] Last Admin: 01/10/21 06:47 Dose: 40 mg Documented by: Potassium Chloride (Potassium Chloride 20 Meq Tab.Er) 40 meq PO ONETIME ONE Stop: 01/08/21 09:31 Last Admin: 01/08/21 10:01 Dose: 40 meq Documented by: Tetanus/Diphtheria Toxoids (Diphtheria/Tetanus Toxoids,Adult (Td) 0.5 Ml Syringe) 0.5 ml IM .ONCE ONE Stop: 01/07/21 13:16 Last Admin: 01/07/21 13:53 Dose: 0.5 ml Documented by: - Patient Data Lab Results Last 24 hrs: Laboratory Results - last 24 hr 01/10/21 01/10/21 Range/Units 05:05 05:05 WBC 12.88 H (4.0-11.0) K/uL RBC 4.87 (4.50-5.90) M/uL Hgb 15.0 (13.0-17.0) g/dL Hct 46.6 (38.0-50.0) % MCV 95.7 (80.0-98.0) fL MCH 30.8 (27.0-32.0) pg MCHC 32.2 (31.0-37.0) g/dL RDW Std Deviation 49.0 (28.0-62.0) fl RDW Coeff of Andrew 14 (11.0-15.0) % Plt Count 275 (150-400) K/uL MPV 11.30 (7.40-12.00) fL Neut % (Auto) 64.4 (48.0-80.0) % Lymph % (Auto) 24.0 (16.0-40.0) % [place] % (Auto) 9.8 (0.0-15.0) % Eos % (Auto) 1.5 (0.0-7.0) % Baso % (Auto) 0.3 (0.0-1.5) % Neut # (Auto) 8.3 H (1.4-5.7) K/uL Lymph # (Auto) 3.1 H (0.6-2.4) K/uL [place] # (Auto) 1.3 H (0.0-0.8) K/uL Eos # (Auto) 0.2 (0.0-0.7) K/uL Baso # (Auto) 0.0 (0.0-0.1) K/uL Nucleated RBC % 0.0 /100WBC Nucleated RBCs # 0 K/uL Sodium 141 (136-148) mmol/L Potassium 3.9 (3.5-5.1) mmol/L Chloride 103 (98-107) mmol/L Carbon Dioxide 30.8 (21.0-32.0) mmol/L BUN 19 H (7.0-18.0) mg/dL Creatinine 1.0 (0.8-1.3) mg/dL Est Cr Clr Drug Dosing 100.24 mL/min Estimated GFR (MDRD) > 60.0 ml/min Glucose 100 (74-106) mg/dL Calcium 9.0 (8.5-10.1) mg/dL Magnesium 2.2 (1.8-2.4) mg/dL Total Bilirubin 0.6 (0.2-1.0) mg/dL AST 23 (15-37) IU/L ALT 52 (14-63) IU/L Alkaline Phosphatase 132 H (46-116) U/L Total Protein 6.9 (6.4-8.2) g/dL Albumin 2.8 L (3.4-5.0) g/dL Globulin 4.1 H (2.6-4.0) g/dL Albumin/Globulin Ratio 0.7 L (0.9-1.6) Result Diagrams: 01/10/21 05:05 01/10/21 05:05 Sepsis Event Note - Focused Exam Vital Signs: Vital Signs Temp Pulse Pulse Resp BP BP Pulse Ox 01/10/21 09:15 106 H 123/84 01/10/21 09:14 106 H 123/84 01/10/21 08:24 35.6 C L 111 H 20 136/84 95 01/10/21 05:31 36.5 C 88 19 124/94 H 94 L - Plan Plan:: I have seen and evaluated the patient. I have discussed findings and treatment plan with resident. I agree with the assessment and plan in the following note.
[2021-01-07] MEDS ORDERED: Diphtheria/Tetanus Toxoids,Adult (Td) 0.5 ML Syringe IM ONE (13:15)
[2021-01-07] MEDS: Diltiazem IR 30 MG Tab PO SCH ×3 (13:51→23:30)
[2021-01-07] MEDS ORDERED: Diltiazem IR 60 MG Tab PO ONE (20:00)
[2021-01-07] MEDS: atorvaSTATin 20 MG Tab PO SCH (21:22)
[2021-01-07] MEDS: Levofloxacin/Dextrose 5%-Water 750 MG in Premix Bag 1 BAG IV SCH (21:22)
[2021-01-08] MEDS: Diltiazem 25 MG/5 ML SDV IVPUSH PRN ×2 (04:37→07:59)
[2021-01-08 05:47] LABS: BLOOD UREA NITROGEN,BUN 14 mg/dL (7.0-18.0); CARBON DIOXIDE,CO2 29.7 mmol/L (21.0-32.0); CHLORIDE,CL 102 mmol/L (98-107); GLUCOSE RANDOM 111 mg/dL (74-106); POTASSIUM,K 3.6 mmol/L (3.5-5.1); SODIUM,NA 138 mmol/L (136-148)
[2021-01-08] MEDS: Furosemide 40 MG/4 ML VIAL IVPUSH SCH ×3 (06:15→21:42)
[2021-01-08] MEDS: Pantoprazole 40 MG Tab.CR PO SCH (06:30)
[2021-01-08] MEDS ORDERED: Potassium Chloride 20 MEQ Tab.ER PO ONE (09:30)
[2021-01-08] MEDS: Aspirin 81 MG Tab.Chew PO SCH (09:57)
[2021-01-08] MEDS: Diltiazem 120 MG Cap.CD PO SCH (09:58)
[2021-01-08] MEDS: Apixaban 5 MG Tab PO SCH ×2 (09:59→21:49)
[2021-01-08] MEDS: Metoprolol Tartrate 50 MG Tab PO SCH ×2 (10:00→21:49)
--- NOTE | 2021-01-08 12:24 | PCM.PN ---
- General Info Date of Service: 01/08/21 Subjective Update: Patient seen at bedside, resting in bed comfortably states that he has been feeling pretty well, states when he tries to get out of bed walk to the bathroom or when he tries to cough his heart rate jumps up and he can feel it in his chest. Otherwise states that he feels that he is improving every day. Patient is not using his CPAP states that he feels that the filter is not clean and the mask is not working well. I recommended patient to try it again and if it doesn't work then try to use the hospital CPAP machine patient is in agreement Functional Status: Reports: Tolerating Diet, Ambulating, Urinating - Review of Systems General: Denies: Fever, Weakness, Fatigue Pulmonary: Reports: Shortness of Breath, Cough. Denies: Pleuritic Chest Pain Cardiovascular: Denies: Chest Pain, Palpitations Gastrointestinal: Denies: Abdominal Pain, Constipation, Decreased Appetite Genitourinary: Denies: Dysuria, Frequency, Burning Musculoskeletal: Denies: Neck Pain, Shoulder Pain, Arm Pain Skin: Denies: Cyanosis, Jaundice - Patient Data Vitals - Most Recent: Last Vital Signs Temp 36.6 C 01/08/21 11:32 Pulse 106 H 01/08/21 11:32 Resp 16 01/08/21 11:32 BP 128/96 H 01/08/21 11:32 Pulse Ox 94 L 01/08/21 11:32 Weight - Most Recent: 173.318 kg I&O - Last 24 Hours: Intake & Output 01/07/21 01/08/21 01/08/21 22:59 06:59 14:59 Intake Total 1050 700 Output Total 2070 3220 Balance -1020 -2520 Lab Results Last 24 Hours: Laboratory Results - last 24 hr 01/08/21 01/08/21 Range/Units 05:00 05:00 WBC 12.70 H (4.0-11.0) K/uL RBC 4.79 (4.50-5.90) M/uL Hgb 14.9 (13.0-17.0) g/dL Hct 45.7 (38.0-50.0) % MCV 95.4 (80.0-98.0) fL MCH 31.1 (27.0-32.0) pg MCHC 32.6 (31.0-37.0) g/dL RDW Std Deviation 49.1 (28.0-62.0) fl RDW Coeff of Andrew 14 (11.0-15.0) % Plt Count 273 (150-400) K/uL MPV 10.90 (7.40-12.00) fL Neut % (Auto) 63.4 (48.0-80.0) % Lymph % (Auto) 25.1 (16.0-40.0) % [place] % (Auto) 9.4 (0.0-15.0) % Eos % (Auto) 1.9 (0.0-7.0) % Baso % (Auto) 0.2 (0.0-1.5) % Neut # (Auto) 8.0 H (1.4-5.7) K/uL Lymph # (Auto) 3.2 H (0.6-2.4) K/uL [place] # (Auto) 1.2 H (0.0-0.8) K/uL Eos # (Auto) 0.2 (0.0-0.7) K/uL Baso # (Auto) 0.0 (0.0-0.1) K/uL Nucleated RBC % 0.0 /100WBC Nucleated RBCs # 0 K/uL Sodium 138 (136-148) mmol/L Potassium 3.6 (3.5-5.1) mmol/L Chloride 102 (98-107) mmol/L Carbon Dioxide 29.7 (21.0-32.0) mmol/L BUN 14 (7.0-18.0) mg/dL Creatinine 1.0 (0.8-1.3) mg/dL Est Cr Clr Drug Dosing 100.24 mL/min Estimated GFR (MDRD) > 60.0 ml/min Glucose 111 H (74-106) mg/dL Calcium 9.1 (8.5-10.1) mg/dL Phosphorus 4.8 H (2.6-4.7) mg/dL Magnesium 2.0 (1.8-2.4) mg/dL Total Bilirubin 0.8 (0.2-1.0) mg/dL AST 33 (15-37) IU/L ALT 76 H (14-63) IU/L Alkaline Phosphatase 142 H (46-116) U/L Total Protein 6.9 (6.4-8.2) g/dL Albumin 2.9 L (3.4-5.0) g/dL Globulin 4.0 (2.6-4.0) g/dL Albumin/Globulin Ratio 0.7 L (0.9-1.6) Med Orders - Current: Current Medications Albuterol/Ipratropium (Albuterol/Ipratropium 3.0-0.5 Mg/3 Ml Neb Soln) 3 ml NEB Q4HRRT PRN PRN Reason: Dyspnea Last Admin: 01/07/21 08:39 Dose: 3 ml Documented by: Apixaban (Apixaban 5 Mg Tab) 5 mg PO BID [facility] Last Admin: 01/08/21 09:59 Dose: 5 mg Documented by: Aspirin (Aspirin 81 Mg Tab.Chew) 81 mg PO DAILY [facility] Last Admin: 01/08/21 09:57 Dose: 81 mg Documented by: Atorvastatin Calcium (Atorvastatin 20 Mg Tab) 20 mg PO BEDTIME [facility] Last Admin: 01/07/21 21:22 Dose: 20 mg Documented by: Diltiazem HCl (Diltiazem 25 Mg/5 Ml Sdv) 20 mg IVPUSH Q3H PRN PRN Reason: heart rate > 120 sustained Last Admin: 01/08/21 07:59 Dose: 20 mg Documented by: Diltiazem HCl (Diltiazem 120 Mg Cap.Cd) 240 mg PO DAILY [facility] Last Admin: 01/08/21 09:58 Dose: 240 mg Documented by: Furosemide (Furosemide 40 Mg/4 Ml Vial) 40 mg IVPUSH TID [facility] Last Admin: 01/08/21 06:15 Dose: 40 mg Documented by: Levofloxacin/Dextrose 750 mg/ (Premix) 150 mls @ 100 mls/hr IV Q24H [facility] Last Admin: 01/07/21 21:22 Dose: 100 mls/hr Documented by: Metoprolol Tartrate (Metoprolol Tartrate 50 Mg Tab) 50 mg PO Q12H [facility] Last Admin: 01/08/21 10:00 Dose: 50 mg Documented by: Pantoprazole Sodium (Pantoprazole 40 Mg Tab.Cr) 40 mg PO ACBREAKFAST [facility] Last Admin: 01/08/21 06:30 Dose: 40 mg Documented by: Discontinued Medications Diltiazem HCl (Diltiazem 180 Mg Cap.Cd) 180 mg PO DAILY [facility] Last Admin: 01/07/21 08:24 Dose: 180 mg Documented by: Diltiazem HCl (Diltiazem Ir 60 Mg Tab) 60 mg PO ONETIME ONE Stop: 01/06/21 22:45 Last Admin: 01/06/21 23:18 Dose: 60 mg Documented by: Diltiazem HCl (Diltiazem Ir 60 Mg Tab) 60 mg PO ONETIME ONE Stop: 01/07/21 20:01 Diltiazem HCl (Diltiazem Ir 30 Mg Tab) 30 mg PO Q6HR [facility] Stop: 01/08/21 00:00 Last Admin: 01/07/21 23:30 Dose: 30 mg Documented by: Potassium Chloride (Potassium Chloride 20 Meq Tab.Er) 40 meq PO ONETIME ONE Stop: 01/08/21 09:31 Last Admin: 01/08/21 10:01 Dose: 40 meq Documented by: Tetanus/Diphtheria Toxoids (Diphtheria/Tetanus Toxoids,Adult (Td) 0.5 Ml Syringe) 0.5 ml IM .ONCE ONE Stop: 01/07/21 13:16 Last Admin: 01/07/21 13:53 Dose: 0.5 ml Documented by: - Exam Quality Assessment: Supplemental Oxygen General: Alert, Oriented Neck: Supple Lungs: Clear to Auscultation, Normal Respiratory Effort Cardiovascular: Regular Rate, Regular Rhythm GI/Abdominal Exam: Normal Bowel Sounds, Soft, Non-Tender Extremities: Normal Inspection, Normal Range of Motion, Pedal Edema (Improving). No: No Pedal Edema - Patient Data Lab Results Last 24 hrs: Laboratory Results - last 24 hr 01/08/21 01/08/21 Range/Units 05:00 05:00 WBC 12.70 H (4.0-11.0) K/uL RBC 4.79 (4.50-5.90) M/uL Hgb 14.9 (13.0-17.0) g/dL Hct 45.7 (38.0-50.0) % MCV 95.4 (80.0-98.0) fL MCH 31.1 (27.0-32.0) pg MCHC 32.6 (31.0-37.0) g/dL RDW Std Deviation 49.1 (28.0-62.0) fl RDW Coeff of Andrew 14 (11.0-15.0) % Plt Count 273 (150-400) K/uL MPV 10.90 (7.40-12.00) fL Neut % (Auto) 63.4 (48.0-80.0) % Lymph % (Auto) 25.1 (16.0-40.0) % [place] % (Auto) 9.4 (0.0-15.0) % Eos % (Auto) 1.9 (0.0-7.0) % Baso % (Auto) 0.2 (0.0-1.5) % Neut # (Auto) 8.0 H (1.4-5.7) K/uL Lymph # (Auto) 3.2 H (0.6-2.4) K/uL [place] # (Auto) 1.2 H (0.0-0.8) K/uL Eos # (Auto) 0.2 (0.0-0.7) K/uL Baso # (Auto) 0.0 (0.0-0.1) K/uL Nucleated RBC % 0.0 /100WBC Nucleated RBCs # 0 K/uL Sodium 138 (136-148) mmol/L Potassium 3.6 (3.5-5.1) mmol/L Chloride 102 (98-107) mmol/L Carbon Dioxide 29.7 (21.0-32.0) mmol/L BUN 14 (7.0-18.0) mg/dL Creatinine 1.0 (0.8-1.3) mg/dL Est Cr Clr Drug Dosing 100.24 mL/min Estimated GFR (MDRD) > 60.0 ml/min Glucose 111 H (74-106) mg/dL Calcium 9.1 (8.5-10.1) mg/dL Phosphorus 4.8 H (2.6-4.7) mg/dL Magnesium 2.0 (1.8-2.4) mg/dL Total Bilirubin 0.8 (0.2-1.0) mg/dL AST 33 (15-37) IU/L ALT 76 H (14-63) IU/L Alkaline Phosphatase 142 H (46-116) U/L Total Protein 6.9 (6.4-8.2) g/dL Albumin 2.9 L (3.4-5.0) g/dL Globulin 4.0 (2.6-4.0) g/dL Albumin/Globulin Ratio 0.7 L (0.9-1.6) Result Diagrams: 01/08/21 05:00 01/08/21 05:00 Sepsis Event Note - Evaluation Sepsis Screening Result: No Definite Risk - Focused Exam Vital Signs: Vital Signs Temp Pulse Pulse Resp BP BP BP 01/08/21 11:32 36.6 C 106 H 16 128/96 H 01/08/21 10:05 102 H 130/93 H 01/08/21 10:00 124 H 148/89 H 01/08/21 09:58 124 H 148/89 H 01/08/21 08:00 36.2 C 147 H 18 148/89 H 01/08/21 04:27 36.1 C 18 139/71 Pulse Ox 01/08/21 11:32 94 L 01/08/21 10:05 01/08/21 10:00 01/08/21 09:58 01/08/21 08:00 92 L 01/08/21 04:27 94 L - Problem List Review Problem List Initiated/Reviewed/Updated: Yes - My Orders Last 24 Hours: My Active Orders 01/07/21 21:00 atorvaSTATin [Lipitor] 20 mg PO BEDTIME 01/08/21 09:45 Metoprolol Tartrate [Lopressor] 50 mg PO Q12H - Plan Plan:: Assessment: 1. CHF exacerbation 2. A. fib 3. Leukocytosis 4. Transaminitis. 5. Past medical history: CRICKET on CPAP 6. COVID negative Plan 1. CHF exacerbation with elevated BNP: improving, weight down/ dyspnea improving Continue Lasix 40 mg 3 times daily and dose adjust accordingly. Daily weights/strict I's and O's. Fluid and sodium restriction. Recheck CBC/CMP and urine electrolytes accordingly. Lung nodule : neoplastic vs inflammatory noted on LLL; discussed results with patient; will continue Levofloxacin since WBC still elevated (marginally); advised to follow up in 6-8 weeks for repeat CXR/CT-scan, patient aware 2. Atrial fibrillation: Increase the dose of Cardizem to 240 daily, resume patient's home dose metoprolol 20 mg IV every 3 hours as needed for heart rate >120 sustained Eliquis :continue Continue telemetry 3. Leukocytosis: Currently afebrile. Cont Levofloxacin. Discussed CT findings w. patient; pt understood and agreed to follow up outpatient for repeat imaging 4. Transaminitis: improving 5. Past medical history: Obstructive sleep apnea; continue CPAP at night. 6. COVID negative: reviewed report from [facility]; COVID negative
[2021-01-08] MEDS: Levofloxacin/Dextrose 5%-Water 750 MG in Premix Bag 1 BAG IV SCH (21:41)
[2021-01-08] MEDS: atorvaSTATin 20 MG Tab PO SCH (21:49)
[2021-01-09] MEDS: Pantoprazole 40 MG Tab.CR PO SCH ×2 (06:13→07:38)
[2021-01-09] MEDS: Furosemide 40 MG/4 ML VIAL IVPUSH SCH ×3 (06:13→22:09)
[2021-01-09 06:19] LABS: BLOOD UREA NITROGEN,BUN 18 mg/dL (7.0-18.0); CARBON DIOXIDE,CO2 33.9 mmol/L (21.0-32.0); CHLORIDE,CL 102 mmol/L (98-107); GLUCOSE RANDOM 100 mg/dL (74-106); POTASSIUM,K 3.7 mmol/L (3.5-5.1); SODIUM,NA 141 mmol/L (136-148)
[2021-01-09] MEDS: Metoprolol Tartrate 50 MG Tab PO SCH ×2 (09:21→22:09)
[2021-01-09] MEDS: Diltiazem 120 MG Cap.CD PO SCH (09:22)
[2021-01-09] MEDS: Aspirin 81 MG Tab.Chew PO SCH (09:22)
[2021-01-09] MEDS: Apixaban 5 MG Tab PO SCH ×2 (09:22→20:24)
--- NOTE | 2021-01-09 11:28 | PCM.PN ---
- General Info Date of Service: 01/09/21 Admission Dx/Problem (Free Text): Congestive heart failure, atrial fibrillation Subjective Update: Reports he is feeling significantly improved from his initial admission. Reports less of breath is a lot better. Denies any chest pain reports continued cough with slight amount of phlegm. Denies any nominal pain no trouble urinating and no black or bloody bowel movements. Functional Status: Reports: Pain Controlled, Tolerating Diet, Ambulating, Urinating - Review of Systems General: Reports: Fatigue (Reports he has not slept well). Denies: Weakness HEENT: Reports: No Symptoms. Denies: Headaches, Sore Throat, Visual Changes Pulmonary: Reports: Shortness of Breath (Mild but has improved significantly), Cough, Sputum (Scant) Cardiovascular: Reports: Edema (+1 pitting to his feet only has improved to his lower extremities otherwise). Denies: Chest Pain Gastrointestinal: Reports: No Symptoms. Denies: Abdominal Pain, Nausea, Vomiting Genitourinary: Reports: No Symptoms. Denies: Dysuria, Frequency, Burning Musculoskeletal: Reports: No Symptoms Skin: Reports: No Symptoms Neurological: Reports: No Symptoms Psychiatric: Reports: No Symptoms - Patient Data Vitals - Most Recent: Last Vital Signs Temp 96.0 F L 01/09/21 08:00 Pulse 63 01/09/21 09:22 Resp 22 H 01/09/21 08:00 BP 153/94 H 01/09/21 09:22 Pulse Ox 95 01/09/21 08:00 Weight - Most Recent: 172.456 kg I&O - Last 24 Hours: Intake & Output 01/08/21 01/09/21 01/09/21 22:59 06:59 14:59 Intake Total 750 850 Output Total 2100 2070 Balance -1350 -1220 Lab Results Last 24 Hours: Laboratory Results - last 24 hr 01/09/21 01/09/21 Range/Units 05:40 05:40 WBC 12.64 H (4.0-11.0) K/uL RBC 4.72 (4.50-5.90) M/uL Hgb 14.8 (13.0-17.0) g/dL Hct 45.5 (38.0-50.0) % MCV 96.4 (80.0-98.0) fL MCH 31.4 (27.0-32.0) pg MCHC 32.5 (31.0-37.0) g/dL RDW Std Deviation 49.6 (28.0-62.0) fl RDW Coeff of Andrew 14 (11.0-15.0) % Plt Count 280 (150-400) K/uL MPV 11.10 (7.40-12.00) fL Neut % (Auto) 60.3 (48.0-80.0) % Lymph % (Auto) 25.1 (16.0-40.0) % [place] % (Auto) 12.3 (0.0-15.0) % Eos % (Auto) 1.8 (0.0-7.0) % Baso % (Auto) 0.5 (0.0-1.5) % Neut # (Auto) 7.6 H (1.4-5.7) K/uL Lymph # (Auto) 3.2 H (0.6-2.4) K/uL [place] # (Auto) 1.6 H (0.0-0.8) K/uL Eos # (Auto) 0.2 (0.0-0.7) K/uL Baso # (Auto) 0.1 (0.0-0.1) K/uL Nucleated RBC % 0.0 /100WBC Nucleated RBCs # 0 K/uL Sodium 141 (136-148) mmol/L Potassium 3.7 (3.5-5.1) mmol/L Chloride 102 (98-107) mmol/L Carbon Dioxide 33.9 H (21.0-32.0) mmol/L BUN 18 (7.0-18.0) mg/dL Creatinine 1.1 (0.8-1.3) mg/dL Est Cr Clr Drug Dosing 91.13 mL/min Estimated GFR (MDRD) > 60.0 ml/min Glucose 100 (74-106) mg/dL Calcium 9.2 (8.5-10.1) mg/dL Phosphorus 4.5 (2.6-4.7) mg/dL Magnesium 2.2 (1.8-2.4) mg/dL Med Orders - Current: Current Medications Albuterol/Ipratropium (Albuterol/Ipratropium 3.0-0.5 Mg/3 Ml Neb Soln) 3 ml NEB Q4HRRT PRN PRN Reason: Dyspnea Last Admin: 01/07/21 08:39 Dose: 3 ml Documented by: Apixaban (Apixaban 5 Mg Tab) 5 mg PO BID [facility] Last Admin: 01/09/21 09:22 Dose: 5 mg Documented by: Aspirin (Aspirin 81 Mg Tab.Chew) 81 mg PO DAILY [facility] Last Admin: 01/09/21 09:22 Dose: 81 mg Documented by: Atorvastatin Calcium (Atorvastatin 20 Mg Tab) 20 mg PO BEDTIME [facility] Last Admin: 01/08/21 21:49 Dose: 20 mg Documented by: Diltiazem HCl (Diltiazem 25 Mg/5 Ml Sdv) 20 mg IVPUSH Q3H PRN PRN Reason: heart rate > 120 sustained Last Admin: 01/08/21 07:59 Dose: 20 mg Documented by: Diltiazem HCl (Diltiazem 120 Mg Cap.Cd) 240 mg PO DAILY [facility] Last Admin: 01/09/21 09:22 Dose: 240 mg Documented by: Furosemide (Furosemide 40 Mg/4 Ml Vial) 40 mg IVPUSH TID [facility] Last Admin: 01/09/21 06:13 Dose: 40 mg Documented by: Levofloxacin/Dextrose 750 mg/ (Premix) 150 mls @ 100 mls/hr IV Q24H [facility] Last Admin: 01/08/21 21:41 Dose: 100 mls/hr Documented by: Metoprolol Tartrate (Metoprolol Tartrate 50 Mg Tab) 50 mg PO Q12H [facility] Last Admin: 01/09/21 09:21 Dose: 50 mg Documented by: Pantoprazole Sodium (Pantoprazole 40 Mg Tab.Cr) 40 mg PO ACBREAKFAST [facility] Last Admin: 01/09/21 07:38 Dose: Not Given Documented by: Discontinued Medications Diltiazem HCl (Diltiazem 180 Mg Cap.Cd) 180 mg PO DAILY [facility] Last Admin: 01/07/21 08:24 Dose: 180 mg Documented by: Diltiazem HCl (Diltiazem Ir 60 Mg Tab) 60 mg PO ONETIME ONE Stop: 01/06/21 22:45 Last Admin: 01/06/21 23:18 Dose: 60 mg Documented by: Diltiazem HCl (Diltiazem Ir 60 Mg Tab) 60 mg PO ONETIME ONE Stop: 01/07/21 20:01 Diltiazem HCl (Diltiazem Ir 30 Mg Tab) 30 mg PO Q6HR [facility] Stop: 01/08/21 00:00 Last Admin: 01/07/21 23:30 Dose: 30 mg Documented by: Potassium Chloride (Potassium Chloride 20 Meq Tab.Er) 40 meq PO ONETIME ONE Stop: 01/08/21 09:31 Last Admin: 01/08/21 10:01 Dose: 40 meq Documented by: Tetanus/Diphtheria Toxoids (Diphtheria/Tetanus Toxoids,Adult (Td) 0.5 Ml Syringe) 0.5 ml IM .ONCE ONE Stop: 01/07/21 13:16 Last Admin: 01/07/21 13:53 Dose: 0.5 ml Documented by: - Exam Quality Assessment: DVT Prophylaxis (Eliquis). No: Supplemental Oxygen General: Alert, Oriented, Cooperative, No Acute Distress Lungs: Decreased Breath Sounds (Bibasilar) Cardiovascular: Regular Rate, Irregular Rhythm GI/Abdominal Exam: Normal Bowel Sounds, Soft, Non-Tender, Other (Obese abdomen hinders assessment) Extremities: Normal Inspection, Normal Range of Motion, Non-Tender, Pedal Edema (+1 pitting edema to feet +1 nonpitting to lower extremities.) Skin: Warm, Dry Wound/Incisions: Healing Well Neurological: No New Focal Deficit Psy/Mental Status: Alert, Normal Affect, Normal Mood - Patient Data Lab Results Last 24 hrs: Laboratory Results - last 24 hr 01/09/21 01/09/21 Range/Units 05:40 05:40 WBC 12.64 H (4.0-11.0) K/uL RBC 4.72 (4.50-5.90) M/uL Hgb 14.8 (13.0-17.0) g/dL Hct 45.5 (38.0-50.0) % MCV 96.4 (80.0-98.0) fL MCH 31.4 (27.0-32.0) pg MCHC 32.5 (31.0-37.0) g/dL RDW Std Deviation 49.6 (28.0-62.0) fl RDW Coeff of Andrew 14 (11.0-15.0) % Plt Count 280 (150-400) K/uL MPV 11.10 (7.40-12.00) fL Neut % (Auto) 60.3 (48.0-80.0) % Lymph % (Auto) 25.1 (16.0-40.0) % [place] % (Auto) 12.3 (0.0-15.0) % Eos % (Auto) 1.8 (0.0-7.0) % Baso % (Auto) 0.5 (0.0-1.5) % Neut # (Auto) 7.6 H (1.4-5.7) K/uL Lymph # (Auto) 3.2 H (0.6-2.4) K/uL [place] # (Auto) 1.6 H (0.0-0.8) K/uL Eos # (Auto) 0.2 (0.0-0.7) K/uL Baso # (Auto) 0.1 (0.0-0.1) K/uL Nucleated RBC % 0.0 /100WBC Nucleated RBCs # 0 K/uL Sodium 141 (136-148) mmol/L Potassium 3.7 (3.5-5.1) mmol/L Chloride 102 (98-107) mmol/L Carbon Dioxide 33.9 H (21.0-32.0) mmol/L BUN 18 (7.0-18.0) mg/dL Creatinine 1.1 (0.8-1.3) mg/dL Est Cr Clr Drug Dosing 91.13 mL/min Estimated GFR (MDRD) > 60.0 ml/min Glucose 100 (74-106) mg/dL Calcium 9.2 (8.5-10.1) mg/dL Phosphorus 4.5 (2.6-4.7) mg/dL Magnesium 2.2 (1.8-2.4) mg/dL Result Diagrams: 01/09/21 05:40 01/09/21 05:40 Sepsis Event Note - Evaluation Sepsis Screening Result: No Definite Risk - Focused Exam Vital Signs: Vital Signs Temp Pulse Pulse Resp BP BP BP 01/09/21 09:22 63 153/94 H 01/09/21 09:21 70 153/94 H 01/09/21 08:00 96.0 F L 107 H 22 H 130/79 01/09/21 04:42 97.5 F 92 18 140/94 H 01/08/21 23:55 05/30/21 23:50 97.5 F 94 18 124/86 Pulse Ox 01/09/21 09:22 01/09/21 09:21 01/09/21 08:00 95 01/09/21 04:42 95 01/08/21 23:55 94 L 01/08/21 23:50 94 L - Problem List & Annotations (1) Noncompliance SNOMED Code(s): 6816680 Code(s): Z91.19 - PATIENT'S NONCOMPLIANCE W OTH MEDICAL TREATMENT AND REGIMEN Status: Chronic Current Visit: Yes (2) CAP (community acquired pneumonia) SNOMED Code(s): 975099442 Code(s): J18.9 - PNEUMONIA, UNSPECIFIED ORGANISM Status: Acute Current Visit: Yes (3) Afib SNOMED Code(s): 73592616 Code(s): I48.91 - UNSPECIFIED ATRIAL FIBRILLATION Status: Chronic Current Visit: Yes (4) CHF (congestive heart failure) SNOMED Code(s): 24075508 Code(s): I50.9 - HEART FAILURE, UNSPECIFIED Status: Acute Current Visit: Yes Qualifiers: Heart failure type: other Qualified Code(s): I50.9 - Heart failure, uns pecified (5) Obesity SNOMED Code(s): 235573895, 340723325 Code(s): E66.9 - OBESITY, UNSPECIFIED Status: Chronic Current Visit: Yes (6) CRICKET on CPAP SNOMED Code(s): 10362433 Code(s): G47.33 - OBSTRUCTIVE SLEEP APNEA (ADULT) (PEDIATRIC); Z99.89 - DEPENDENCE ON OTHER ENABLING MACHINES AND DEVICES Status: Chronic Current Visit: Yes - Problem List Review Problem List Initiated/Reviewed/Updated: Yes - Plan Plan:: This 60-year-old male admitted with acute CHF exacerbation and A. fib. 1. CHF exacerbation with elevated BNP: -Steadily improving, weight down/ dyspnea improving - Continue Lasix 40 mg 3 times daily - Daily weights/strict I's and O's. 2 g low-sodium diet with 1.8 fluid restriction daily. - Echo reportpending - will need cardiology follow-up for ischemic work-up patient notified of this and reports that he was obviously referred by AL to [facility] for cardiology work- up - reports times of non compliance with medications. Urged to take prescribed meds at ordered. -Counseled on low-sodium diet, weight monitoring at home and CHF. 2. CAP, possible - lung nodule : neoplastic vs inflammatory noted on LLL - continue Levofloxacin - advised to follow up in 6-8 weeks for repeat CXR/CT-scan 3. Atrial fibrillation: -Continue Cardizem to 240 daily, resume patient's home dose metoprolol 50 twice daily -Continue Eliquis - Continue telemetry 4. CRICKET -We will need follow-up to ensure CPAP is working appropriately. -Continue CPAP VTE prophylaxis: Eliquis CODE STATUS: Full code Dispo: Likely home in a.m.
[2021-01-09] MEDS: atorvaSTATin 20 MG Tab PO SCH (20:24)
[2021-01-09] MEDS: Levofloxacin/Dextrose 5%-Water 750 MG in Premix Bag 1 BAG IV SCH (20:25)
[2021-01-10] MEDS: Furosemide 40 MG/4 ML VIAL IVPUSH SCH (05:45)
[2021-01-10 06:39] LABS: BLOOD UREA NITROGEN,BUN 19 mg/dL (7.0-18.0); CARBON DIOXIDE,CO2 30.8 mmol/L (21.0-32.0); CHLORIDE,CL 103 mmol/L (98-107); GLUCOSE RANDOM 100 mg/dL (74-106); POTASSIUM,K 3.9 mmol/L (3.5-5.1); SODIUM,NA 141 mmol/L (136-148)
[2021-01-10] MEDS: Pantoprazole 40 MG Tab.CR PO SCH (06:47)
[2021-01-10] MEDS: Diltiazem 120 MG Cap.CD PO SCH (09:14)
[2021-01-10] MEDS: Metoprolol Tartrate 50 MG Tab PO SCH (09:15)
[2021-01-10] MEDS: Aspirin 81 MG Tab.Chew PO SCH (09:15)
[2021-01-10] MEDS: Apixaban 5 MG Tab PO SCH (09:15)
--- NOTE | 2021-01-10 13:54 | PCM.DCSUM1 ---
Discharge Summary - Hospital Course Brief History: Patient is a morbidly obese 60-year-old -[place] male with a significant past medical history of atrial fibrillation, CHF, possible asthma; presenting today as direct admission from [facility] for worsening shortness of breath and an episode of syncope 24 hours prior. Patient states increasing dyspnea with exertion and having to use 2 pillows at night as shortness of breath would worsen while in complete supine position. States that symptoms began towards the middle of October and had steadily worsened up until last week symptoms progressively worsened. Denies any fevers, chills, body aches. Endorses dyspnea with exertion and shortness of breath at rest especially in the supine position. [facility]: EKG: Atrial fibrillation with a ventricular rate of 99. Diltiazem 10 mg IV push once at 5 AM on 12/29/2020. Started on diltiazem oral 100 mg given at 8 AM this morning. Patient was also given 40 mg of furosemide IV push. Labs from outside facility: Sodium 140. Potassium 3.9. Glucose 106 creatinine 0.6. AST 60, ALT 86 alk phos 132. BNP 780. WBC: 12. Hemoglobin 14. Hematocrit 41 platelets 221. COVID negative. Bedside: Patient endorses symptoms have improved since admission. Endorsed yesterday some significant symptoms but admitted he is feeling much better now. Denies any acute distress at this time including fever, chills, bodies, chest pain, shortness of breath - Discharge Data Discharge Date: 01/10/21 Discharge Disposition: Home, Self-Care 01 Condition: Good - Referral to Home Health Primary Care Physician: PCP None - Discharge Diagnosis/Problem(s) (1) CAP (community acquired pneumonia) SNOMED Code(s): 073651650 ICD Code: J18.9 - PNEUMONIA, UNSPECIFIED ORGANISM Status: Acute (2) Afib SNOMED Code(s): 48884966 ICD Code: I48.91 - UNSPECIFIED ATRIAL FIBRILLATION Status: Chronic (3) CHF (congestive heart failure) SNOMED Code(s): 64313226 ICD Code: I50.9 - HEART FAILURE, UNSPECIFIED Status: Acute Qualifiers: Heart failure type: other Qualified Code(s): I50.9 - Heart failure, unspecified (4) Obesity SNOMED Code(s): 041237330, 006563393 ICD Code: E66.9 - OBESITY, UNSPECIFIED Status: Chronic (5) CRICKET on CPAP SNOMED Code(s): 96680516 ICD Code: G47.33 - OBSTRUCTIVE SLEEP APNEA (ADULT) (PEDIATRIC); Z99.89 - DEPENDENCE ON OTHER ENABLING MACHINES AND DEVICES Status: Chronic - Patient Summary/Data Hospital Course: Admission diagnoses CHF Atrial fibrillation Discharge diagnoses Atrial fibrillation CHF Other PMH Possible asthma Obesity Intermittent years of noncompliance with medications Patient was admitted directly from [facility] for worsening shortness of breath and syncopal episode. Patient was found to be in heart failure and treated with diuresis and had lost some weight at [facility] but they were unable to do further dilation. Patient arrived and was treated aggressively with Lasix 40 mg 3 times daily, daily weights strict I's and O's and low-sodium diet. During his stay patient had extensive education and counseling regarding medication compliance and diet compliance to help limit exacerbations of fluid retention. Echo obtained and on discharge no echo report available due to holiday weekend. Patient atrial fibrillation was controlled with diltiazem which was slowly titrated up to 240 mg p.o. daily as well as metoprolol tartrate 50 mg p.o. twice daily. Patient also started on Eliquis for chads vas score of at least 4. He reports he was previously started on Eliquis but had then stopped taking it couple years ago. Patient also had potential pneumonia as chest x-ray revealed possible small infiltrates versus nodules. It was recommended that he have repeat imaging in 6 weeks after treatment. He was treated with Levaquin 750 mg p.o. daily he will continue this for another 4 days. Today he will be discharged home again he was counseled extensively on diet including Dash diet low sodium diet. He was counseled on weight monitoring and the importance of losing weight as this may overall help his condition. [facility]. Patient will need lab work to evaluate potassium at follow-up due to Lasix. Patient needs cardiac ischemic work-up to evaluate because of CHF. We also discussed that patient may have medication titration or additions when echo is available and completely read. Patient reports he does have cardiology referral already through the [facility] but we again would recommend referral for urgent work-up. He was counseled on continuing to use his CPAP and would encourage self weaning of this as well as machine monitoring. Patient medication on discharge will be diltiazem 240 mg p.o. daily, metoprolol tartrate 50 mg p.o. twice daily, Eliquis 5 mg twice daily and Lasix 40 mg twice daily. Patient will be discharged home today [facility] with [facility] in 1 to 2 weeks. - Patient Instructions Diet: Heart Healthy Diet, Low Sodium, Fluid Restriction Fluid Restriction: 1800 Activity: No Strenuous Activities Showering/Bathing: May Shower Other/Special Instructions: Findings noted on your CT suggested some concerns for nodules; recommended to get a follow up chest x ray or ct in 6-8 weeks to check for resolution. Monitor weight daily. Keep log book to see trends. If weight increases by 2 to 3 pounds in 3 to 5 days please notify PCP as you may need increased dose of Lasix. If you experience any chest pain shortness of breath palpitations please seek medical attention immediately. We will notify the [facility] that you need to have further cardiology work-up please limit strenuous activity until cardiac work-up is complete. - Discharge Plan *PRESCRIPTION DRUG MONITORING PROGRAM REVIEWED*: Not Applicable *COPY OF PRESCRIPTION DRUG MONITORING REPORT IN PATIENT SAJI: Not Applicable Prescriptions/Med Rec: Diltiazem HCl [Diltiazem 24Hr Cd] 240 mg PO DAILY #30 cap.er.24h Apixaban [Eliquis] 5 mg PO BID #60 tablet Furosemide [Lasix] 40 mg PO BID #60 tab levoFLOXacin [Levaquin] 250 mg PO DAILY #9 tab Metoprolol Tartrate [Lopressor] 50 mg PO Q12H #60 tablet Home Medications: Home Meds Albuterol Sulfate [Proair Hfa] 1 puff INH Q4HR PRN 01/06/21 [History] Apixaban [Eliquis] 5 mg PO BID #60 tablet 01/10/21 [Rx] Diltiazem HCl [Diltiazem 24Hr Cd] 240 mg PO DAILY #30 cap.er.24h 01/10/21 [Rx] Furosemide [Lasix] 40 mg PO BID #60 tab 01/10/21 [Rx] Metoprolol Tartrate [Lopressor] 50 mg PO Q12H #60 tablet 01/10/21 [Rx] levoFLOXacin [Levaquin] 250 mg PO DAILY #9 tab 01/10/21 [Rx] Oxygen Therapy Mode: Room Air Patient Handouts: Diltiazem Extended-Release Oral Capsules or Tablets, Furosemide Oral Tablets, Metoprolol tablets, Heart-Healthy Eating Plan, [id number], Heart Failure Action Plan, Levofloxacin tablets, Heart Failure, Diagnosis, Living With Heart Failure, Heart Failure Medicines, Apixaban oral tablets Referrals: Mika Nuñez NP [Ordering Only Provider] - 01/25/21 2:00 pm Bernadette Wise MD [Ordering Only Provider] - (Our provider recommends a cardiology follow up. The [facility] is going [facility] call you with a new appointment.) - Discharge Summary/Plan Comment DC Time >30 min.: Yes (Greater than 45 minutes spent counseling patient regarding CHF diagnosis) - Patient Data Vitals - Most Recent: Last Vital Signs Temp 96.0 F L 01/10/21 08:24 Pulse 106 H 01/10/21 09:15 Resp 20 01/10/21 08:24 BP 123/84 01/10/21 09:15 Pulse Ox 95 01/10/21 08:24 Weight - Most Recent: 170.505 kg I&O - Last 24 hours: Intake & Output 01/09/21 01/10/21 01/10/21 22:59 06:59 14:59 Intake Total 800 700 500 Output Total 2300 2800 650 Balance -1500 -2100 -150 Lab Results - Last 24 hrs: Laboratory Results - last 24 hr 01/10/21 01/10/21 Range/Units 05:05 05:05 WBC 12.88 H (4.0-11.0) K/uL RBC 4.87 (4.50-5.90) M/uL Hgb 15.0 (13.0-17.0) g/dL Hct 46.6 (38.0-50.0) % MCV 95.7 (80.0-98.0) fL MCH 30.8 (27.0-32.0) pg MCHC 32.2 (31.0-37.0) g/dL RDW Std Deviation 49.0 (28.0-62.0) fl RDW Coeff of Andrew 14 (11.0-15.0) % Plt Count 275 (150-400) K/uL MPV 11.30 (7.40-12.00) fL Neut % (Auto) 64.4 (48.0-80.0) % Lymph % (Auto) 24.0 (16.0-40.0) % [place] % (Auto) 9.8 (0.0-15.0) % Eos % (Auto) 1.5 (0.0-7.0) % Baso % (Auto) 0.3 (0.0-1.5) % Neut # (Auto) 8.3 H (1.4-5.7) K/uL Lymph # (Auto) 3.1 H (0.6-2.4) K/uL [place] # (Auto) 1.3 H (0.0-0.8) K/uL Eos # (Auto) 0.2 (0.0-0.7) K/uL Baso # (Auto) 0.0 (0.0-0.1) K/uL Nucleated RBC % 0.0 /100WBC Nucleated RBCs # 0 K/uL Sodium 141 (136-148) mmol/L Potassium 3.9 (3.5-5.1) mmol/L Chloride 103 (98-107) mmol/L Carbon Dioxide 30.8 (21.0-32.0) mmol/L BUN 19 H (7.0-18.0) mg/dL Creatinine 1.0 (0.8-1.3) mg/dL Est Cr Clr Drug Dosing 100.24 mL/min Estimated GFR (MDRD) > 60.0 ml/min Glucose 100 (74-106) mg/dL Calcium 9.0 (8.5-10.1) mg/dL Magnesium 2.2 (1.8-2.4) mg/dL Total Bilirubin 0.6 (0.2-1.0) mg/dL AST 23 (15-37) IU/L ALT 52 (14-63) IU/L Alkaline Phosphatase 132 H (46-116) U/L Total Protein 6.9 (6.4-8.2) g/dL Albumin 2.8 L (3.4-5.0) g/dL Globulin 4.1 H (2.6-4.0) g/dL Albumin/Globulin Ratio 0.7 L (0.9-1.6) Med Orders - Current: Current Medications Albuterol/Ipratropium (Albuterol/Ipratropium 3.0-0.5 Mg/3 Ml Neb Soln) 3 ml NEB Q4HRRT PRN PRN Reason: Dyspnea Last Admin: 01/07/21 08:39 Dose: 3 ml Documented by: Apixaban (Apixaban 5 Mg Tab) 5 mg PO BID [facility] Last Admin: 01/10/21 09:15 Dose: 5 mg Documented by: Aspirin (Aspirin 81 Mg Tab.Chew) 81 mg PO DAILY [facility] Last Admin: 01/10/21 09:15 Dose: 81 mg Documented by: Atorvastatin Calcium (Atorvastatin 20 Mg Tab) 20 mg PO BEDTIME [facility] Last Admin: 01/09/21 20:24 Dose: 20 mg Documented by: Diltiazem HCl (Diltiazem 25 Mg/5 Ml Sdv) 20 mg IVPUSH Q3H PRN PRN Reason: heart rate > 120 sustained Last Admin: 01/08/21 07:59 Dose: 20 mg Documented by: Diltiazem HCl (Diltiazem 120 Mg Cap.Cd) 240 mg PO DAILY [facility] Last Admin: 01/10/21 09:14 Dose: 240 mg Documented by: Furosemide (Furosemide 40 Mg/4 Ml Vial) 40 mg IVPUSH TID [facility] Last Admin: 01/10/21 05:45 Dose: 40 mg Documented by: Levofloxacin/Dextrose 750 mg/ (Premix) 150 mls @ 100 mls/hr IV Q24H [facility] Last Admin: 01/09/21 20:25 Dose: 100 mls/hr Documented by: Metoprolol Tartrate (Metoprolol Tartrate 50 Mg Tab) 50 mg PO Q12H [facility] Last Admin: 01/10/21 09:15 Dose: 50 mg Documented by: Pantoprazole Sodium (Pantoprazole 40 Mg Tab.Cr) 40 mg PO ACBREAKFAST [facility] Last Admin: 01/10/21 06:47 Dose: 40 mg Documented by: Discontinued Medications Diltiazem HCl (Diltiazem 180 Mg Cap.Cd) 180 mg PO DAILY [facility] Last Admin: 01/07/21 08:24 Dose: 180 mg Documented by: Diltiazem HCl (Diltiazem Ir 60 Mg Tab) 60 mg PO ONETIME ONE Stop: 01/06/21 22:45 Last Admin: 01/06/21 23:18 Dose: 60 mg Documented by: Diltiazem HCl (Diltiazem Ir 60 Mg Tab) 60 mg PO ONETIME ONE Stop: 01/07/21 20:01 Diltiazem HCl (Diltiazem Ir 30 Mg Tab) 30 mg PO Q6HR [facility] Stop: 01/08/21 00:00 Last Admin: 01/07/21 23:30 Dose: 30 mg Documented by: Potassium Chloride (Potassium Chloride 20 Meq Tab.Er) 40 meq PO ONETIME ONE Stop: 01/08/21 09:31 Last Admin: 01/08/21 10:01 Dose: 40 meq Documented by: Tetanus/Diphtheria Toxoids (Diphtheria/Tetanus Toxoids,Adult (Td) 0.5 Ml Syringe) 0.5 ml IM .ONCE ONE Stop: 01/07/21 13:16 Last Admin: 01/07/21 13:53 Dose: 0.5 ml Documented by:
--- NOTE | 2021-01-12 16:18 | ECHO ---
EXAM DATE: 01/06/21 PATIENT'S AGE: 60 The ECHO report has been scanned into [employer] and can be seen in this patient's EMR (Electronic Medical Record) under the REPORTS section. The report has also been scanned into PACS. JACKLYN
== END 2021-01-10 13:00 | disposition home or self-care (01) ==
LOC: MW.MS 11:35 → INTOOBSV 11:35
PROVIDERS: ADMIT Student in an Organized Health Care Education/Training Program; ATTEND Student in an Organized Health Care Education/Training Program
DX: R55 Syncope and collapse (principal); I50.9 Heart failure, unspecified; I48.91 Unspecified atrial fibrillation; E66.01 Morbid (severe) obesity due to excess calories; D72.829 Elevated white blood cell count, unspecified; G47.33 Obstructive sleep apnea (adult) (pediatric); J18.9 Pneumonia, unspecified organism; Z79.899 Other long term (current) drug therapy; Z20.822 Contact with and (suspected) exposure to COVID-19
CPT/HCPCS: 36415; 71046; 71250; 80048; 80053; 80061; 81003; 83036; 83735; 83880; 84100; 84439; 84443; 84481; 85025; 86317; 90471; 90714; 93306; A9270; J1940; J1956; J3490; 96365; 96366; 96375; 96376; G0378; J7620-GY

== ENCOUNTER 2021-07-14 13:16 | Emergency (ER) | payer OTHER ==
[2021-07-14] MEDS ORDERED: Sodium Chloride 0.9% 2.5 ML Syringe FLUSH PRN (13:27)
[2021-07-14] MEDS ORDERED: Sodium Chloride 0.9% 10 ML Syringe FLUSH PRN (13:27)
[2021-07-14 14:43] LABS: CORONAVIRUS COVID-19 NAA NEGATIVE (NEGATIVE); INFLUENZA A NAA NEGATIVE (NEGATIVE); INFLUENZA B NAA NEGATIVE (NEGATIVE)
--- NOTE | 2021-07-14 14:54 | CR ---
INDICATION: Shortness of breath. TECHNIQUE: Chest 2 views. COMPARISON: Chest radiograph 01/06/2021. FINDINGS: Low lung volumes. Mild interstitial opacities in lung bases bilaterally. Resolution of the previously seen left lung base consolidation. No pleural effusion or pneumothorax. Normal heart size and pulmonary vascularity. Tortuous aorta. Degenerative changes of the spine. IMPRESSION: 1. Mild interstitial opacities in the lung bases bilaterally may be infectious/inflammatory versus atelectasis. 2. Resolution of the previously seen left lung base consolidation. Dictated by Jennifer Barber MD @ 07/14/2021 2:52:09 PM (Electronically Signed)
[2021-07-14 15:07] LABS: BLOOD UREA NITROGEN,BUN 13 mg/dL (7.0-18.0); CARBON DIOXIDE,CO2 23.7 mmol/L (21.0-32.0); CHLORIDE,CL 105 mmol/L (98-107); GLUCOSE RANDOM 123 mg/dL (74-106); POTASSIUM,K 3.7 mmol/L (3.5-5.1); SODIUM,NA 142 mmol/L (136-148)
[2021-07-14] MEDS ORDERED: Iopamidol 755 MG/ML 500 ML Multipack Bottle IVPUSH ONE (17:05)
--- NOTE | 2021-07-14 17:17 | EDM.PDOC ---
ED HPI GENERAL MEDICAL PROBLEM - General Chief Complaint: Respiratory Problem Stated Complaint: DIFFICULTY BREATHING Time Seen by Provider: 07/14/21 13:21 - History of Present Illness INITIAL COMMENTS - FREE TEXT/NARRATIVE: HISTORY AND PHYSICAL: History of present illness: This is a 60-year-old gentleman with a history significant for hypertension, obstructive sleep apnea, atrial fibrillation, CHF, who presents ER today second maik to yellow productive cough, congestion, shortness of breath, pleuritic chest pain that started for 2 to 3 days. Patient reports that he did a Covid test on himself yesterday and it was negative. Patient reports he has been around a lot of sick family contacts. Patient reports tactile fevers at home with no nausea, vomiting, diarrhea. Patient has any dysuria, frequency, urgency. Patient denies any increased lower extremity edema or increased weight. Patient reports that he has been compliant with his blood pressure and CHF medications. Patient reports he is currently anticoagulated secondary to his atrial fibrillation. Patient reports that the symptoms that he is experiencing today are very similar to symptoms that he experienced when he contracted pneumonia. Patient denies any pain rating down his arms or back. Patient has any diaphoresis. Patient denies any exertional component to the pain. Patient reports the pain increases with deep inspiration and coughing. Review of systems: As per history of present illness and below otherwise all systems reviewed and negative. Past medical history: As per history of present illness and as reviewed below otherwise noncontributory. Surgical history: As per history of present illness and as reviewed below otherwise noncontributory. Social history: No reported history of drug abuse. Family history: As per history of present illness and as reviewed below otherwise noncontributory. Physical exam: This patient was seen and evaluated during the 2019 SARS-CoV-2 novel coronavirus pandemic period. Community viral transmission is ongoing at time of this encounter and the emergency department is operating under pandemic response procedures. Constitutional: Patient is oriented to person, place, and time. Appears well-developed and well-nourished. No distress. HEENT: Moist mucous membranes Head: Normocephalic and atraumatic Eyes: Right eye exhibits no discharge. Left eye exhibits no discharge. No scleral icterus Neck: Normal range of motion. No tracheal deviation present. Cardiovascular: Irregularly irregular rhythm with rapid rate of 110. Patient without a palpable RV heave or split S2. Patient has no lower extremity edema and has a negative Homans' sign. Pulmonary: Effort normal, no respiratory distress. Patient with some audible wheezing. No rales or rhonchi Abdominal: No distention Musculoskeletal: Normal range of motion Neurologic: Alert and oriented to person, place and time. Skin: [place], warm and dry. Psychiatric: Normal mood and affect. Behavior is normal. Judgment and thought content normal. Nursing note and vital signs have been reviewed Diagnostics: CBC, CMP within normal limits. Patient's troponin is normal. Patient had a chest x-ray with what looked like a widened mediastinum. Patient has CTA of his chest abdomen pelvis secondary to an abnormal reading in his prior CT scan with enlarged lymph nodes and a fusiform aorta. Patient CT scan reveals a stable aortic aneurysm. Patient's nodules appear to have been reactive as there has been complete interval resolution of the previously seen inflammatory nodules in the left lung. Assessment and plan: Patient presentation appears to be consistent with a bronchitis. Patient's chest CT did not reveal any evidence of pneumonia. Patient will get started on Zithromax and prednisone. Patient be given a dose here in the ED and given a prescription for the same. Patient also be given a DuoNeb as well as Solu-Medrol IV in the ER. Patient's pulse ox is currently 97% on room air patient appears extremely comfortable. Patient has been requesting to be discharged home for the last 1 to 2 hours. Patient is agreed to stay until the results and at this time he feels very comfortable with the plan to be discharged home with close outpatient follow-up. Definitive disposition and diagnosis as appropriate pending reevaluation and review of above. Chest Pain Score (Numeric/FACES): 6 - Related Data Allergies Allergy/AdvReac Type Severity Reaction Status Date / Time No Known Allergies Allergy Verified 07/14/21 13:45 Home Meds: Home Meds Albuterol Sulfate [Proair Hfa] 1 puff INH Q4HR PRN 01/06/21 [History] Apixaban [Eliquis] 5 mg PO BID #60 tablet 01/10/21 [Rx] Diltiazem HCl [Diltiazem 24Hr Cd] 240 mg PO DAILY #30 cap.er.24h 01/10/21 [Rx] Furosemide [Lasix] 40 mg PO BID #60 tab 01/10/21 [Rx] Metoprolol Tartrate [Lopressor] 50 mg PO Q12H #60 tablet 01/10/21 [Rx] levoFLOXacin [Levaquin] 250 mg PO DAILY #9 tab 01/10/21 [Rx] Azithromycin [Zithromax] 250 mg PO DAILY #4 tablet 07/14/21 [Rx] predniSONE [Prednisone] 50 mg PO DAILY #5 tablet 07/14/21 [Rx] Past Medical History HEENT History: Reports: Hard of Hearing Cardiovascular History: Reports: Afib, Heart Failure, Hypertension Respiratory History: Reports: Asthma, COPD, Pneumonia, Recurrent, Sleep Apnea, Other (See Below) Other Respiratory History: Pt uses CPAP at night Neurological History: Reports: Concussion Psychiatric History: Reports: ADHD, Anxiety, Depression, PTSD - Infectious Disease History Infectious Disease History: Reports: Chicken Pox - Past Surgical History HEENT Surgical History: Reports: None Cardiovascular Surgical History: Reports: None Respiratory Surgical History: Reports: None GI Surgical History: Reports: Colonoscopy Social & Family History - Tobacco Use Tobacco Use Status *Q: Never Tobacco User - Caffeine Use Caffeine Use: Reports: Tea - Recreational Drug Use Recreational Drug Use: No ED ROS GENERAL - Review of Systems Review Of Systems: See Below ED EXAM, GENERAL - Physical Exam Exam: See Below #1 Interpretation EKG Date: 07/14/21 Time: 13:51 EKG Interpretation Comments: EKG: As interpreted by ER physician: Lalo: Nonspecific ST-T wave abnormalities Normal axis No evidence of ST elevation DE Atrial fibrillation with a heart rate of 111 Course - Vital Signs Last Recorded V/S: Last Vital Signs Temp 97.6 F 07/14/21 16:33 Pulse 80 07/14/21 16:33 Resp 18 07/14/21 16:33 BP 151/107 H 07/14/21 16:33 Pulse Ox 95 07/14/21 16:33 - Orders/Labs/Meds Orders: Active Orders 24 hr Category Date Time Status RT Aerosol Therapy [RC] ASDIRECTED Care 07/14/21 17:31 Active Azithromycin [Zithromax] Med 07/14/21 17:33 Once 500 mg PO Q24H ONE Sodium Chloride 0.9% [Saline Flush] Med 07/14/21 13:27 Active 10 ml FLUSH ASDIRECTED PRN Sodium Chloride 0.9% [Saline Flush] Med 07/14/21 13:27 Active 2.5 ml FLUSH ASDIRECTED PRN Saline Lock Insert [OM.PC] Stat Oth 07/14/21 13:27 Ordered Medication Orders Azithromycin (Azithromycin 250 Mg Tab) 500 mg PO Q24H ONE Stop: 07/14/21 17:34 Sodium Chloride (Sodium Chloride 0.9% 10 Ml Syringe) 10 ml FLUSH ASDIRECTED PRN PRN Reason: Keep Vein Open Last Admin: 07/14/21 14:32 Dose: 10 ml Documented by: NIR Sodium Chloride (Sodium Chloride 0.9% 2.5 Ml Syringe) 2.5 ml FLUSH ASDIRECTED PRN PRN Reason: Keep Vein Open Last Admin: 07/14/21 14:33 Dose: 2.5 ml Documented by: NIR Labs: Laboratory Tests 07/14/21 07/14/21 07/14/21 Range/Units 13:46 14:23 14:23 WBC 9.18 (4.0-11.0) K/uL RBC 4.85 (4.50-5.90) M/uL Hgb 15.6 (13.0-17.0) g/dL Hct 46.0 (38.0-50.0) % MCV 94.8 (80.0-98.0) fL MCH 32.2 H (27.0-32.0) pg MCHC 33.9 (31.0-37.0) g/dL RDW Std Deviation 46.9 (28.0-62.0) fl RDW Coeff of Andrew 14 (11.0-15.0) % Plt Count 205 (150-400) K/uL MPV 10.40 (7.40-12.00) fL Neut % (Auto) 57.6 (48.0-80.0) % Lymph % (Auto) 27.8 (16.0-40.0) % Dolores % (Auto) 12.1 (0.0-15.0) % Eos % (Auto) 2.1 (0.0-7.0) % Baso % (Auto) 0.4 (0.0-1.5) % Neut # (Auto) 5.3 (1.4-5.7) K/uL Lymph # (Auto) 2.6 H (0.6-2.4) K/uL Dolores # (Auto) 1.1 H (0.0-0.8) K/uL Eos # (Auto) 0.2 (0.0-0.7) K/uL Baso # (Auto) 0.0 (0.0-0.1) K/uL Nucleated RBC % 0.0 /100WBC Nucleated RBCs # 0 K/uL D-Dimer, Quantitative 0.81 H (0.0-0.50) mg/L FEU Sodium (136-148) mmol/L Potassium (3.5-5.1) mmol/L Chloride (98-107) mmol/L Carbon Dioxide (21.0-32.0) mmol/L BUN (7.0-18.0) mg/dL Creatinine (0.8-1.3) mg/dL Est Cr Clr Drug Dosing mL/min Estimated GFR (MDRD) ml/min Glucose (74-106) mg/dL Calcium (8.5-10.1) mg/dL Total Bilirubin (0.2-1.0) mg/dL AST (15-37) IU/L ALT (14-63) IU/L Alkaline Phosphatase (46-116) U/L Troponin I (0.000-0.056) ng/mL B-Natriuretic Peptide (<100) PG/ML Total Protein (6.4-8.2) g/dL Albumin (3.4-5.0) g/dL Globulin (2.6-4.0) g/dL Albumin/Globulin Ratio (0.9-1.6) Influenza Type A RNA NEGATIVE (NEGATIVE) Influenza Type B RNA NEGATIVE (NEGATIVE) SARS-CoV-2 RNA (ADRIAN) NEGATIVE (NEGATIVE) 07/14/21 07/14/21 Range/Units 14:23 14:23 WBC (4.0-11.0) K/uL RBC (4.50-5.90) M/uL Hgb (13.0-17.0) g/dL Hct (38.0-50.0) % MCV (80.0-98.0) fL MCH (27.0-32.0) pg MCHC (31.0-37.0) g/dL RDW Std Deviation (28.0-62.0) fl RDW Coeff of Andrew (11.0-15.0) % Plt Count (150-400) K/uL MPV (7.40-12.00) fL Neut % (Auto) (48.0-80.0) % Lymph % (Auto) (16.0-40.0) % Dolores % (Auto) (0.0-15.0) % Eos % (Auto) (0.0-7.0) % Baso % (Auto) (0.0-1.5) % Neut # (Auto) (1.4-5.7) K/uL Lymph # (Auto) (0.6-2.4) K/uL Dolores # (Auto) (0.0-0.8) K/uL Eos # (Auto) (0.0-0.7) K/uL Baso # (Auto) (0.0-0.1) K/uL Nucleated RBC % /100WBC Nucleated RBCs # K/uL D-Dimer, Quantitative (0.0-0.50) mg/L FEU Sodium 142 (136-148) mmol/L Potassium 3.7 (3.5-5.1) mmol/L Chloride 105 (98-107) mmol/L Carbon Dioxide 23.7 (21.0-32.0) mmol/L BUN 13 (7.0-18.0) mg/dL Creatinine 1.0 (0.8-1.3) mg/dL Est Cr Clr Drug Dosing 100.24 mL/min Estimated GFR (MDRD) > 60.0 ml/min Glucose 123 H (74-106) mg/dL Calcium 9.3 (8.5-10.1) mg/dL Total Bilirubin 0.4 (0.2-1.0) mg/dL AST 24 (15-37) IU/L ALT 37 (14-63) IU/L Alkaline Phosphatase 151 H (46-116) U/L Troponin I < 0.050 (0.000-0.056) ng/mL B-Natriuretic Peptide 157 H (<100) PG/ML Total Protein 7.7 (6.4-8.2) g/dL Albumin 3.2 L (3.4-5.0) g/dL Globulin 4.5 H (2.6-4.0) g/dL Albumin/Globulin Ratio 0.7 L (0.9-1.6) Influenza Type A RNA (NEGATIVE) Influenza Type B RNA (NEGATIVE) SARS-CoV-2 RNA (ADRIAN) (NEGATIVE) Meds: Medications Generic Name Dose Route Start Last Admin Trade Name Freq PRN Reason Stop Dose Admin Azithromycin 500 mg 07/14/21 17:33 Azithromycin 250 Mg Tab PO 07/14/21 17:34 Q24H ONE Sodium Chloride 10 ml 07/14/21 13:27 07/14/21 14:32 Sodium Chloride 0.9% 10 Ml Syringe FLUSH 10 ml ASDIRECTED PRN Administration Keep Vein Open Sodium Chloride 2.5 ml 07/14/21 13:27 07/14/21 14:33 Sodium Chloride 0.9% 2.5 Ml Syringe FLUSH 2.5 ml ASDIRECTED PRN Administration Keep Vein Open Discontinued Medications Generic Name Dose Route Start Last Admin Trade Name Freq PRN Reason Stop Dose Admin Albuterol/Ipratropium 3 ml 07/14/21 17:31 Albuterol/Ipratropium 3.0-0.5 Mg/3 Ml Neb Soln NEB 07/14/21 17:32 ONETIME ONE Iopamidol 100 ml 07/14/21 17:05 07/14/21 17:05 Iopamidol 755 Mg/Ml 500 Ml Multipack Bottle IVPUSH 07/14/21 17:06 100 ml ONETIME ONE Administration Methylprednisolone Sodium Succinate 125 mg 07/14/21 17:32 Methylprednisolone Sodium Succinate 125 Mg/2 Ml Sdv IVPUSH 07/14/21 17:33 ONETIME ONE Departure - Departure Time of Disposition: 17:40 Disposition: Home, Self-Care 01 Condition: Good Clinical Impression: Bronchitis, Chest wall pain - Discharge Information Instructions: Shortness of Breath, Adult, [id number], Upper Respiratory Infection, Adult, [id number], Acute Bronchitis, Adult, [id number] Referrals: Mika Nuñez [employer] [Primary Care Provider] - Forms: ED Department Discharge Additional Instructions: You were seen and evaluated in ER today secondary to cough, shortness of breath and chest pain. Your evaluation here today has been unremarkable with a CT scan that fortunately does not reveal any significant pathology. Given your symptoms and the wheezing you have been given a DuoNeb and steroids here in the ED. Please utilize your albuterol inha please return to the ER if you develop any new or concerning symptoms. Otherwise please make an appointment see your doctor ler at home to see if that will help your shortness of breath. You will also get started on antibiotics and steroids to go home with. In the next 2 to 3 days. The following information is given to patients seen in the emergency department who are being discharged to home. This information is to outline your options for follow-up care. We provide all patients seen in our emergency department with a follow-up referral. The need for follow-up, as well as the timing and circumstances, are variable depending upon the specifics of your emergency department visit. If you don't have a primary care physician on staff, we will provide you with a referral. We always advise you to contact your personal physician following an emergency department visit to inform them of the circumstance of the visit and for follow-up with them and/or the need for any referrals to a consulting specialist. The emergency department will also refer you to a specialist when appropriate. This referral assures that you have the opportunity for follow-up care with a specialist. All of these measure are taken in an effort to provide you with optimal care, which includes your follow-up. Under all circumstances we always encourage you to contact your private physician who remains a resource for coordinating your care. When calling for follow-up care, please make the office aware that this follow-up is from your recent emergency room visit. If for any reason you are refused follow-up, please contact the [facility] Emergency Department at and asked to speak to the emergency department charge nurse. [facility] - [facility] [address] [place] [id number] [id number] Sepsis Event Note (ED) - Focused Exam Vital Signs: Vital Signs Temp Pulse Resp BP Pulse Ox 07/14/21 16:33 97.6 F 80 18 151/107 H 95 07/14/21 13:45 97.2 F 83 18 147/115 H 96 - My Orders Last 24 Hours: My Active Orders 07/14/21 13:27 Sodium Chloride 0.9% [Saline Flush] 10 ml FLUSH ASDIRECTED PRN Sodium Chloride 0.9% [Saline Flush] 2.5 ml FLUSH ASDIRECTED PRN Saline Lock Insert [OM.PC] Stat 07/14/21 17:31 RT Aerosol Therapy [RC] ASDIRECTED 07/14/21 17:33 Azithromycin [Zithromax] 500 mg PO Q24H ONE - Assessment/Plan Last 24 Hours: My Active Orders 07/14/21 13:27 Sodium Chloride 0.9% [Saline Flush] 10 ml FLUSH ASDIRECTED PRN Sodium Chloride 0.9% [Saline Flush] 2.5 ml FLUSH ASDIRECTED PRN Saline Lock Insert [OM.PC] Stat 07/14/21 17:31 RT Aerosol Therapy [RC] ASDIRECTED 07/14/21 17:33 Azithromycin [Zithromax] 500 mg PO Q24H ONE
--- NOTE | 2021-07-14 17:20 | CT ---
INDICATION: Chest pain. TECHNIQUE: CT abdomen and pelvis angio acquired with 150 cc Isovue 370 IV contrast. COMPARISON: None. FINDINGS: Lower chest: Unremarkable. Liver: Unremarkable. Normal in size and attenuation. No suspicious masses. Gallbladder and bile ducts: Unremarkable. No stones or inflammation. No biliary dilatation. Pancreas: Unremarkable. No mass or inflammation. Spleen: Unremarkable. Normal in size. No masses. Adrenal glands: Unremarkable. No nodules. Kidneys: Unremarkable. No suspicious masses, stones, or hydronephrosis. GI tract: Unremarkable. Normal in caliber. No sign of mass or inflammation. Normal appendix. Vasculature: Unremarkable. Mesenteric arteries are patent. Lymph nodes: No lymphadenopathy. Omentum/Peritoneum/Abdominal Wall: Unremarkable. No sign of mass or infiltration. No free air or significant free fluid. Pelvis: Unremarkable. Bones: Unremarkable for age. IMPRESSION: Unremarkable CT of the abdomen and pelvis. Specifically the abdominal aorta is normal and the mesenteric arteries are patent. No specific finding to explain pain. Please note that all CT scans at this facility use dose modulation, iterative reconstruction, and/or weight-based dosing when appropriate to reduce radiation dose to as low as reasonably achievable. Dictated by Andrea Hernandes MD @ 07/14/2021 5:17:06 PM (Electronically Signed)
--- NOTE | 2021-07-14 17:27 | CT ---
INDICATION: Chest pain. TECHNIQUE: CT chest was acquired with 150 cc Isovue 370 IV contrast. COMPARISON: None. FINDINGS: Lungs and pleural: No suspicious nodules or infiltrates. No pleural effusions, pleural thickening, or pneumothorax. Heart and vasculature: Heart size is normal.Stable mild ascending aortic aneurysm measuring 4.4 cm on today`s exam. Lymph nodes/mediastinum: No mediastinal, hilar, or axillary adenopathy. Chest wall: No masses. Upper abdomen: Normal. Bones: Unremarkable for age. IMPRESSION: 1. No acute or specific findings to explain chest pain. 2. Stable mild ascending aortic aneurysm measuring 4.4 cm. No sign of dissection. 3. Complete interval resolution of the previously seen inflammatory nodules in the left lung. Please note that all CT scans at this facility use dose modulation, iterative reconstruction, and/or weight-based dosing when appropriate to reduce radiation dose to as low as reasonably achievable. Dictated by Andrea Hernandes MD @ 07/14/2021 5:24:22 PM (Electronically Signed)
[2021-07-14] MEDS ORDERED: Albuterol/Ipratropium 3.0-0.5 MG/3 ML Neb Soln NEB ONE (17:31)
[2021-07-14] MEDS ORDERED: methylPREDNISolone Sodium Succinate 125 MG/2 ML SDV IVPUSH ONE (17:32)
[2021-07-14] MEDS ORDERED: Azithromycin 250 MG Tab PO ONE (17:33)
== END 2021-07-14 18:20 | disposition home or self-care (01) ==
LOC: MW.ED 13:16
DX: J40 Bronchitis, not specified as acute or chronic (principal); I48.91 Unspecified atrial fibrillation; I11.0 Hypertensive heart disease with heart failure; I50.9 Heart failure, unspecified; J44.9 Chronic obstructive pulmonary disease, unspecified; Z79.01 Long term (current) use of anticoagulants; Z79.899 Other long term (current) drug therapy; Z20.822 Contact with and (suspected) exposure to COVID-19
CPT/HCPCS: 0240U; 36415; 71046; 71275; 74174; 80053; 83880; 84484; 85025; 85379; 93005; 96374; 99285; A9270; J2930; Q9967; J7620-GY